=== PATIENT | female | born 1955 | race American Indian/Alaskan Native ===

== ENCOUNTER → 2016-09-16 | Outpatient (CLI) | payer OTHER ==
[2016-09-16 08:45] LABS: CHLORIDE,CL 104 mmol/L (98-110); SODIUM,NA 139 mmol/L (136-146)
== END ==
LOC: MW.CHFP 07:52
PROVIDERS: ATTEND Emergency Medicine
DX: I10 Essential (primary) hypertension (principal); E11.9 Type 2 diabetes mellitus without complications; Z79.4 Long term (current) use of insulin
CPT/HCPCS: 36415; 80053; 80061; 82044; 83036

== ENCOUNTER 2016-10-11 06:56 | Emergency (ER) | payer OTHER ==
[2016-10-11] MEDS ORDERED: Albuterol/Ipratropium 3.0-0.5 MG/3 ML Neb Soln NEB ONE (07:15)
--- NOTE | 2016-10-11 07:16 | EDM.PDOC ---
ED HPI GENERAL MEDICAL PROBLEM - General Chief Complaint: Skin Complaint Stated Complaint: CELLULITIS Time Seen by Provider: 10/11/16 07:16 Source of Information: Reports: Patient - History of Present Illness INITIAL COMMENTS - FREE TEXT/NARRATIVE: HISTORY AND PHYSICAL: History of present illness: [] Patient presents with cough for one week increasing in severity Urinary complaint of small-scale cellulitis on her abdomen secondary to insulin injection site approximately the size of a quarter red warm tender no exudate Fever nausea vomiting chills sweats no chest pain shortness breath headache dizziness or palpitation no bowel or urine symptoms Review of systems: As per history of present illness and below otherwise all systems reviewed and negative. Past medical history: As per history of present illness and as reviewed below otherwise noncontributory. Surgical history: As per history of present illness and as reviewed below otherwise noncontributory. Social history: No reported history of drug or alcohol abuse. Family history: As per history of present illness and as reviewed below otherwise noncontributory. Physical exam: HEENT: Atraumatic, normocephalic, pupils reactive, negative for conjunctival pallor or scleral icterus, mucous membranes moist, throat clear, neck supple, nontender, trachea midline. Lungs: Clear to auscultation, breath sounds equal bilaterally, chest nontender. Heart: S1S2, regular, negative for clicks, rubs, or JVD. Abdomen: Soft, nondistended, nontender. Negative for masses or hepatosplenomegaly. Negative for costovertebral tenderness. Pelvis: Stable nontender. Genitourinary: Deferred. Rectal: Deferred. Extremities: Atraumatic, negative for cords or calf pain. Neurovascular unremarkable. Neuro: Awake, alert, oriented. Cranial nerves II through XII unremarkable. Cerebellum unremarkable. Motor and sensory unremarkable throughout. Exam nonfocal. Diagnostics: [] Chest x-ray 2 views Therapeutics: [] DuoNeb Doxycycline HFA Impression: [] Acute bronchitis Small cellulitis right lower quadrant of abdomen proximally the size of a quarter surrounding the injection site Definitive disposition and diagnosis as appropriate pending reevaluation and review of above. - Related Data Allergies Allergy/AdvReac Type Severity Reaction Status Date / Time adhesive tape Allergy Itching Verified 10/11/16 07:08 amoxicillin trihydrate Allergy Diarrhea Verified 10/11/16 07:08 [From Augmentin] potassium clavulanate Allergy Rash Verified 10/11/16 07:08 [From Augmentin] sulfamethoxazole Allergy Nausea and Verified 10/11/16 07:08 [From Bactrim] Vomiting Tetanus Vaccines and Toxoid Allergy Swelling Verified 10/11/16 07:08 [Tetanus Vaccines & Toxoid] tramadol Allergy Rash Verified 10/11/16 07:08 trimethoprim [From Bactrim] Allergy Nausea and Verified 10/11/16 07:08 Vomiting Home Meds: Home Meds Lisinopril 20 mg PO DAILY 12/26/13 [History] Insulin Aspart [NovoLOG] 26 units SUBCUT QIDACANDBED 07/07/15 [History] Furosemide 0 mg PO BID 10/11/16 [History] Potassium Bicarbonate/Cit Ac [Potassium 25 Meq Tablet Eff] 0 DAILY 10/11/16 [ History] Past Medical History HEENT History: Reports: None Cardiovascular History: Reports: Hypertension Respiratory History: Reports: Sleep Apnea, Other (See Below) Other Respiratory History: Tested for sleep apnea, inconclusive results, "did not sleep well in the setting I was in". She mentioned to me that the results were positive but she refused the cpap. 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: Musculoskeletal History: Reports: Arthritis, Fracture, Osteoarthritis, Osteoporosis Other Musculoskeletal History: Treat arthritis symptoms with Alovera supplement , Hx: fracturing Pelvis '2012 Neurological History: Reports: None Psychiatric History: Reports: None Endocrine/Metabolic History: Reports: Diabetes, Type II, Obesity/BMI 30+ Hematologic History: Reports: None Immunologic History: Reports: None Oncologic (Cancer) History: Reports: None Dermatologic History: Reports: Cellulitis Other Dermatologic History: Cellulitus post surgery 07/2015, very sensitive to tapes/adhesives - Infectious Disease History Infectious Disease History: Reports: Chicken Pox, Measles - Past Surgical History HEENT Surgical History: Reports: Oral Surgery GI Surgical History: Reports: Appendectomy, Cholecystectomy, Colonoscopy, EGD, Hernia Repair/Other - History Comment History Comment: denies etoh Social & Family History - Family History Family Medical History: Noncontributory Cardiac: Reports: Afib Endocrine/Metabolic: Reports: Diabetes, type II Oncologic: Reports: Leukemia - Tobacco Use Smoking Status *Q: Never Smoker Second Hand Smoke Exposure: No - Caffeine Use Caffeine Use: Reports: Coffee, Soda - Alcohol Use Days Per Week of Alcohol Use: 0 Number of Drinks Per Day: 0 Total Drinks Per Week: 0 - Recreational Drug Use Recreational Drug Use: No Drug Use in Last 12 Months: No ED ROS GENERAL - Review of Systems Review Of Systems: ROS reveals no pertinent complaints other than HPI. ED EXAM, SKIN/RASH Exam: See Below Course - Vital Signs Last Recorded V/S: Last Vital Signs Temp 37.1 C 10/11/16 07:09 Pulse 91 10/11/16 07:09 Resp 18 10/11/16 07:09 BP 123/63 10/11/16 07:09 Pulse Ox 97 10/11/16 07:09 - Orders/Labs/Meds Orders: Active Orders 24 hr Category Date Time Status RT Aerosol Therapy [RC] ASDIRECTED Care 10/11/16 07:16 Active Chest 2V [CR] Stat Exams 10/11/16 07:16 Taken Meds: Medications Discontinued Medications Generic Name Dose Route Start Last Admin Trade Name Freq PRN Reason Stop Dose Admin Albuterol/Ipratropium 3 ml 10/11/16 07:15 10/11/16 07:29 Duoneb 3.0-0.5 Mg/3 Ml NEB 10/11/16 07:16 3 ml ONETIME ONE Administration Departure - Departure Time of Disposition: 08:09 Disposition: Home, Self-Care 01 Condition: good Clinical Impression: Acute bronchitis, Cellulitis - Discharge Information Forms: ED Department Discharge Additional Instructions: Medication as prescribed Return if symptoms persist or worsen Followup with primary care in 2 weeks Consider allergy medicine such as Claritin or Zyrtec daily [facility] [address] [place] [address] The following information is given to patients seen in the emergency department who are being discharged to home. This information is to outline your options for follow-up care. We provide all patients seen in our emergency department with a follow-up referral. The need for follow-up, as well as the timing and circumstances, are variable depending upon the specifics of your emergency department visit. If you don't have a primary care physician on staff, we will provide you with a referral. We always advise you to contact your personal physician following an emergency department visit to inform them of the circumstance of the visit and for follow-up with them and/or the need for any referrals to a consulting specialist. The emergency department will also refer you to a specialist when appropriate. This referral assures that you have the opportunity for follow-up care with a specialist. All of these measure are taken in an effort to provide you with optimal care, which includes your follow-up. Under all circumstances we always encourage you to contact your private physician who remains a resource for coordinating your care. When calling for follow-up care, please make the office aware that this follow-up is from your recent emergency room visit. If for any reason you are refused follow-up, please contact the [facility] emergency department at and asked to speak to the emergency department charge nurse. - My Orders Last 24 Hours: My Active Orders 10/11/16 07:16 RT Aerosol Therapy [RC] ASDIRECTED Chest 2V [CR] Stat - Assessment/Plan Last 24 Hours: My Active Orders 10/11/16 07:16 RT Aerosol Therapy [RC] ASDIRECTED Chest 2V [CR] Stat
[2016-10-11 08:20] VITALS: BP 149/90
--- NOTE | 2016-10-11 14:55 | CR ---
EXAM DATE: 10/11/16 PATIENT'S AGE: 60 Patient: TRENTON HALLMAN Facility: [place], [place] Site . Site : [id number] Study: XRay Chest [id number]/30/2017 8:00:39 AM Ordering Physician: Pop Blair Final Report: INDICATION: PAIN/SOB 2 VIEW CHEST FINDINGS: Heart size and vascular pattern appear normal. Lungs clear. Pleural angles are sharp. No visualized rib fractures or pneumothorax. CONCLUSION: Negative chest. Dictated by: Carlitos Gallo MD @ 10/11/2016 08:11:54 (Electronic Signature) Report Signed by Proxy. [facility] DIVISIONIftikhar
== END 2016-10-11 08:21 | disposition home or self-care (01) ==
LOC: MW.ED 06:56
DX: J20.9 Acute bronchitis, unspecified (principal); L03.311 Cellulitis of abdominal wall; E11.9 Type 2 diabetes mellitus without complications; E66.9 Obesity, unspecified; Z68.39 Body mass index [BMI] 39.0-39.9, adult; Z90.49 Acquired absence of other specified parts of digestive tract; Z98.890 Other specified postprocedural states; Z79.4 Long term (current) use of insulin; Z79.899 Other long term (current) drug therapy; Z88.1 Allergy status to other antibiotic agents; Z88.8 Allergy status to other drugs, medicaments and biological substances; Z91.048 Other nonmedicinal substance allergy status
CPT/HCPCS: 71020; 71020-26; 94664; 99283; 99283-25

== ENCOUNTER 2017-06-09 06:46 | Day surgery (SDC) | payer OTHER ==
--- NOTE | 2017-06-09 07:39 | PCM.PREANE ---
Preanesthetic Assessment - Anesthesia/Transfusion/Family Hx Anesthesia History: Prior Anesthesia Without Reaction Other Type of Anesthesia Reaction Comment: "tired & groggy" Family History of Anesthesia Reaction: No Transfusion History: No Prior Transfusion(s) Intubation History: History of Difficulty Intubation - Review of Systems General: No Symptoms Pulmonary: No Symptoms Cardiovascular: No Symptoms Gastrointestinal: No Symptoms Neurological: No Symptoms Other: Reports: None - Physical Assessment NPO Status Date: 06/08/17 NPO Status Time: 20:00 O2 Sat by Pulse Oximetry: 96 Respiratory Rate: 16 Vital Signs: Last Vital Signs Temp 36.4 C 06/09/17 07:10 Pulse 77 06/09/17 07:10 Resp 16 06/09/17 07:10 BP 150/73 H 06/09/17 07:10 Pulse Ox 96 06/09/17 07:10 Height: 1.7 m Weight: 118.388 kg ASA Class: 2 Airway Class: Mallampati = 3 Dentition: Reports: Normal Dentition ROM/Head Extension: Full Lungs: Clear to Auscultation, Normal Respiratory Effort Cardiovascular: Regular Rate, Regular Rhythm - Allergies Allergies/Adverse Reactions: Allergies Allergy/AdvReac Type Severity Reaction Status Date / Time adhesive tape Allergy Itching Verified 06/06/17 09:50 amoxicillin trihydrate Allergy Diarrhea Verified 06/06/17 09:50 [From Augmentin] clindamycin Allergy Nausea and Verified 06/06/17 09:55 Vomiting potassium clavulanate Allergy Rash Verified 06/06/17 09:50 [From Augmentin] sulfamethoxazole Allergy Nausea and Verified 06/06/17 09:50 [From Bactrim] Vomiting Tetanus Vaccines and Toxoid Allergy Swelling Verified 06/06/17 09:50 [Tetanus Vaccines & Toxoid] tramadol Allergy Rash Verified 06/06/17 09:50 trimethoprim [From Bactrim] Allergy Nausea and Verified 06/06/17 09:50 Vomiting - Anesthesia Plan Pre-Op Medication Ordered: None - Acknowledgements Anesthesia Type Planned: MAC Pt an Appropriate Candidate for the Planned Anesthesia: Yes Alternatives and Risks of Anesthesia Discussed w Pt/Guardian: Yes Pt/Guardian Understands and Agrees with Anesthesia Plan: Yes PreAnesthesia Questionnaire HEENT History: Reports: None Other HEENT History: wears glasses Cardiovascular History: Reports: Hypertension Other Cardiovascular History: 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 She mentioned to me that the results were positive but she refused the cpap. 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: Musculoskeletal History: Reports: Arthritis, Fracture, Osteoarthritis, Osteoporosis Other Musculoskeletal History: Treat arthritis symptoms with Alovera supplement , Hx: fracturing Pelvis '2012 Neurological History: Reports: None Psychiatric History: Reports: None Endocrine/Metabolic History: Reports: Diabetes, Type II, Obesity/BMI 30+ Hematologic History: Reports: None Immunologic History: Reports: None Oncologic (Cancer) History: Reports: None Dermatologic History: Reports: Cellulitis Other Dermatologic History: Cellulitus post surgery 07/2015, very sensitive to tapes/adhesives - Infectious Disease History Infectious Disease History: Reports: Chicken Pox, Measles - Past Surgical History Head Surgeries/Procedures: Reports: None HEENT Surgical History: Reports: Oral Surgery GI Surgical History: Reports: Appendectomy, Cholecystectomy, Colonoscopy, EGD, Hernia Repair/Other Other GI Surgeries/Procedures: Umbilical hernia repair, attempt to remove Gallbladder once, [place] for Laparoscopic removal of Gallbladder '2014, liver biopsy diagnosis Stage I liver disease, non-alcohol related Female Surgical History: Reports: Hysterectomy - History Comment History Comment: denies etoh - SUBSTANCE USE Smoking Status *Q: Never Smoker Tobacco Use Within Last Twelve Months: No Second Hand Smoke Exposure: No Days Per Week of Alcohol Use: 0 Number of Drinks Per Day: 0 Total Drinks Per Week: 0 Recreational Drug Use History: No - HOME MEDS Home Medications: Home Meds Lisinopril 20 mg PO DAILY 12/26/13 [History] Insulin Aspart [NovoLOG] 1 injection SUBCUT QIDACANDBED 07/07/15 [History] Albuterol [Ventolin HFA] 1 - 2 puff INH ASDIRECTED PRN 06/06/17 [History] Exenatide Microspheres [Bydureon] 1 injection SUBCUT WEEKLY 06/06/17 [History] - CURRENT (IN HOUSE) MEDS Current Meds: Current Medications Bupivacaine HCl/Epinephrine Bitart (Marcaine 0.25%/Epinephrine 1:200,000) 10 ml INJECT ONETIME ONE Stop: 06/09/17 08:01 Lactated Ringer's (Ringers, Lactated) 1,000 mls @ 500 mls/hr IV .BOLUS KERA Last Admin: 06/09/17 07:14 Dose: 500 mls/hr
[2017-06-09] MEDS ORDERED: Propofol 200 MG/20 ML SDV ONE (07:40)
[2017-06-09] MEDS ORDERED: Lidocaine 2% 5 ML SDV ONE ×2 (07:40→07:41)
[2017-06-09] MEDS ORDERED: Ketorolac 30 MG/ML SDV ONE ×2 (07:40→07:41)
[2017-06-09] MEDS ORDERED: Ondansetron 4 MG/2 ML SDV ONE ×2 (07:40→07:41)
[2017-06-09] MEDS ORDERED: fentaNYL 100 MCG/2 ML SDV ONE (07:40)
[2017-06-09] MEDS ORDERED: Midazolam 1 MG/ML 2 ML SDV ONE (07:41)
[2017-06-09] MEDS ORDERED: Lactated Ringers 1,000 ML IV SCH (08:00)
[2017-06-09] MEDS ORDERED: Bupivacaine 0.25%/EPINEPHrine 1:200,000 10 ML SDV INJECT ONE (08:00)
[2017-06-09] MEDS ORDERED: Atropine 1 MG/ML SDV ONE (09:04)
[2017-06-09 10:15] VITALS: BP 139/70
--- NOTE | 2017-06-09 10:39 | PCM48HPAN ---
Post Anesthesia Note - EVALUATION WITHIN 48HRS OF ANESTHETIC Vital Signs in Normal Range: Yes Patient Participated in Evaluation: Yes Respiratory Function Stable: Yes Airway Patent: Yes Cardiovascular Function Stable: Yes Hydration Status Stable: Yes Pain Control Satisfactory: Yes Nausea and Vomiting Control Satisfactory: Yes Mental Status Recovered: Yes
--- NOTE | 2017-06-09 10:39 | PCM.POSTAN ---
POST ANESTHESIA ASSESSMENT - MENTAL STATUS Mental Status: Alert, Oriented - RESPIRATORY Respiratory Status: Respiratory Rate WNL, Airway Patent, O2 Saturation Stable - CARDIOVASCULAR CV Status: Pulse Rate WNL, Blood Pressure Stable - GASTROINTESTINAL GI Status: No Symptoms - POST OP HYDRATION Hydration Status: Adequate & Stable
--- NOTE | 2017-06-09 13:17 | PCM.OPNOTE ---
- General Post-Op/Procedure Note Date of Surgery/Procedure: 06/09/17 Operative Procedure(s): left carpal tunnel release Pre Op Diagnosis: left carpal tunnel syndrome Post-Op Diagnosis: Same Anesthesia Technique: Local, MAC Primary Surgeon: Sakshi Franklin Rn Practitioner: Veronica Hills Complications: None Condition: Good Free Text/Narrative:: Intake & Output 06/08/17 06/09/17 06/09/17 23:59 07:59 15:59 Intake Total 750 Balance 750 [id number]
--- NOTE | 2017-06-09 20:43 | OR ---
SURGEON: NIRAV KRUGER MD DATE OF PROCEDURE: 06/09/2017 PREOPERATIVE DIAGNOSIS: Left carpal tunnel syndrome. POSTOPERATIVE DIAGNOSIS: Left carpal tunnel syndrome. PROCEDURE: Left carpal tunnel release. HARNESS PLACER: NATHAN Sosa. INDICATIONS: Ms. Short is seen today in evaluation for carpal tunnel. Risks and benefits of release were discussed with her and she was in agreement to proceed. Risks were including, but not limited to bleeding, infection, damage to underlying or overlying structures, possible need for future interventions, and possible scarring. DESCRIPTION OF PROCEDURE: After informed consent was obtained and placed on the chart, the patient was brought to the operating theater and laid in the supine position. After adequate local MAC anesthesia was obtained, the area was prepped and draped, and a time-out was completed to confirm side and site. The arm was then injected with local anesthesia and the arm was exsanguinated. The tourniquet was insufflated to 200 mmHg. Once adequately prepared, the 15 blade was used to dissect through the skin and subcutaneous tissues until release of the ligament. Once breached, the dissection was carried distally and proximally using a Littler scissor. Once adequately released, the area was copiously irrigated and complete release was ensured. The wound was then closed using 5-0 nylon stitch in a horizontal mattress fashion. The wound was dressed with Xeroform, fluffs, a Kerlix gauze dressing, and a 2-inch Alvaro wrap. The patient tolerated this well. All counts and needles were correct at the end of the case. FOLLOWUP INSTRUCTIONS: The patient will see us in 10 to 14 days sooner if any problems, questions, or concerns and was given a prescription for pain control. DENISSEGGTDENISSE / RYAN /[id number]
== END 2017-06-09 10:20 | disposition home or self-care (01) ==
LOC: MW.SDS 06:46
PROVIDERS: ATTEND Plastic Surgery
DX: G56.03 Carpal tunnel syndrome, bilateral upper limbs (principal); F40.240 Claustrophobia; K74.60 Unspecified cirrhosis of liver; I10 Essential (primary) hypertension; E78.00 Pure hypercholesterolemia, unspecified; M17.12 Unilateral primary osteoarthritis, left knee; S83.249A Other tear of medial meniscus, current injury, unspecified knee, initial encounter; F39 Unspecified mood [affective] disorder; K75.81 Nonalcoholic steatohepatitis (NASH); E11.42 Type 2 diabetes mellitus with diabetic polyneuropathy; E66.9 Obesity, unspecified; M81.0 Age-related osteoporosis without current pathological fracture; G47.30 Sleep apnea, unspecified; R16.1 Splenomegaly, not elsewhere classified; Z88.8 Allergy status to other drugs, medicaments and biological substances; Z91.048 Other nonmedicinal substance allergy status; Z79.4 Long term (current) use of insulin; Z88.1 Allergy status to other antibiotic agents; Z88.7 Allergy status to serum and vaccine; Z79.899 Other long term (current) drug therapy; Z98.890 Other specified postprocedural states; Z90.49 Acquired absence of other specified parts of digestive tract; Z68.41 Body mass index [BMI] 40.0-44.9, adult; Z87.442 Personal history of urinary calculi
CPT/HCPCS: 64721; J0461; J1885; J2250; J2405; J3010; J7120; 01810; J2704

== ENCOUNTER 2017-06-30 06:45 | Day surgery (SDC) | payer OTHER ==
[2017-06-30] MEDS ORDERED: Midazolam 1 MG/ML 2 ML SDV ONE (07:23)
[2017-06-30] MEDS ORDERED: fentaNYL 100 MCG/2 ML SDV ONE (07:23)
[2017-06-30] MEDS ORDERED: Propofol 200 MG/20 ML SDV ONE (07:23)
[2017-06-30] MEDS ORDERED: Bupivacaine 25%/EPINEPHrine/PF 30 ML ONE (07:23)
[2017-06-30] MEDS ORDERED: Lidocaine 2% 5 ML SDV ONE (07:23)
--- NOTE | 2017-06-30 07:25 | PCM.PREANE ---
Preanesthetic Assessment - Anesthesia/Transfusion/Family Hx Anesthesia History: Prior Anesthesia Without Reaction Other Type of Anesthesia Reaction Comment: "tired & groggy" Family History of Anesthesia Reaction: No Transfusion History: No Prior Transfusion(s) Intubation History: History of Difficulty Intubation - Review of Systems General: No Symptoms Pulmonary: No Symptoms Cardiovascular: No Symptoms Gastrointestinal: No Symptoms Neurological: No Symptoms Other: Reports: None - Physical Assessment NPO Status Date: 06/29/17 NPO Status Time: 23:00 O2 Sat by Pulse Oximetry: 97 Respiratory Rate: 16 Vital Signs: Last Vital Signs Temp 37.1 C 06/30/17 07:07 Pulse 83 06/30/17 07:07 Resp 16 06/30/17 07:07 BP 143/74 H 06/30/17 07:07 Pulse Ox 97 06/30/17 07:07 Height: 1.7 m Weight: 118.388 kg ASA Class: 3 Mental Status: Alert & Oriented x3 Airway Class: Mallampati = 2 Dentition: Reports: Normal Dentition Thyro-Mental Finger Breadths: 2 Mouth Opening Finger Breadths: 2 ROM/Head Extension: Full Lungs: Clear to Auscultation, Normal Respiratory Effort Cardiovascular: Regular Rate, Regular Rhythm - Allergies Allergies/Adverse Reactions: Allergies Allergy/AdvReac Type Severity Reaction Status Date / Time adhesive tape Allergy Itching Verified 06/27/17 09:25 amoxicillin trihydrate Allergy Diarrhea Verified 06/27/17 09:25 [From Augmentin] clindamycin Allergy Nausea and Verified 06/27/17 09:25 Vomiting potassium clavulanate Allergy Rash Verified 06/27/17 09:25 [From Augmentin] sulfamethoxazole Allergy Nausea and Verified 06/27/17 09:25 [From Bactrim] Vomiting Tetanus Vaccines and Toxoid Allergy Swelling Verified 06/27/17 09:25 [Tetanus Vaccines & Toxoid] tramadol Allergy Rash Verified 06/27/17 09:25 trimethoprim [From Bactrim] Allergy Nausea and Verified 06/27/17 09:25 Vomiting - Blood Blood Available: No - Anesthesia Plan Pre-Op Medication Ordered: None - Acknowledgements Anesthesia Type Planned: MAC Pt an Appropriate Candidate for the Planned Anesthesia: Yes Alternatives and Risks of Anesthesia Discussed w Pt/Guardian: Yes Pt/Guardian Understands and Agrees with Anesthesia Plan: Yes PreAnesthesia Questionnaire HEENT History: Reports: None Other HEENT History: wears glasses Cardiovascular History: Reports: Hypertension Other Cardiovascular History: 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 She mentioned to me that the results were positive but she refused the cpap. 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: Musculoskeletal History: Reports: Arthritis, Fracture, Osteoarthritis, Osteoporosis Other Musculoskeletal History: Treat arthritis symptoms with Alovera supplement , Hx: fracturing Pelvis '2012 Neurological History: Reports: None Psychiatric History: Reports: Mood Swings Endocrine/Metabolic History: Reports: Diabetes, Type II, Obesity/BMI 30+ (BMI 40.9) Hematologic History: Reports: None Immunologic History: Reports: None Oncologic (Cancer) History: Reports: None Dermatologic History: Reports: Cellulitis Other Dermatologic History: Cellulitus post surgery 07/2015, very sensitive to tapes/adhesives - Infectious Disease History Infectious Disease History: Reports: Chicken Pox, Measles - Past Surgical History Head Surgeries/Procedures: Reports: None HEENT Surgical History: Reports: Oral Surgery GI Surgical History: Reports: Appendectomy, Cholecystectomy, Colonoscopy, EGD, Hernia Repair/Other Other GI Surgeries/Procedures: Umbilical hernia repair, attempt to remove Gallbladder once, [facility] for Laparoscopic removal of Gallbladder '2014, liver biopsy diagnosis Stage I liver disease, non-alcohol related Female Surgical History: Reports: Hysterectomy Musculoskeletal Surgical History: Reports: Carpal Tunnel - History Comment History Comment: denies etoh - SUBSTANCE USE Smoking Status *Q: Never Smoker Tobacco Use Within Last Twelve Months: No Second Hand Smoke Exposure: No Days Per Week of Alcohol Use: 0 Number of Drinks Per Day: 0 Total Drinks Per Week: 0 Recreational Drug Use History: No - HOME MEDS Home Medications: Home Meds Lisinopril 20 mg PO DAILY 12/26/13 [History] Insulin Aspart [NovoLOG] 1 injection SUBCUT QIDACANDBED 07/07/15 [History] Albuterol [Ventolin HFA] 1 - 2 puff INH ASDIRECTED PRN 06/06/17 [History] Exenatide Microspheres [Bydureon] 1 injection SUBCUT WEEKLY 06/06/17 [History] Hydrocodone/Acetaminophen [[place] 5-325 Tablet] 1 each PO Q4H PRN #30 tablet [Rx] - CURRENT (IN HOUSE) MEDS Current Meds: Current Medications Bupivacaine HCl/Epinephrine Bitart (Marcaine 0.25%/Epinephrine 1:200,000) 10 ml INJECT ONETIME ONE Stop: 06/30/17 08:01 Lactated Ringer's (Ringers, Lactated) 1,000 mls @ 500 mls/hr IV .BOLUS KERA Last Admin: 06/30/17 07:09 Dose: 500 mls/hr
[2017-06-30] MEDS ORDERED: Lactated Ringers 1,000 ML IV SCH (08:00)
[2017-06-30] MEDS ORDERED: Bupivacaine 0.25%/EPINEPHrine 1:200,000 10 ML SDV INJECT ONE (08:00)
--- NOTE | 2017-06-30 09:03 | PCM48HPAN ---
Post Anesthesia Note - EVALUATION WITHIN 48HRS OF ANESTHETIC Vital Signs in Normal Range: Yes Patient Participated in Evaluation: Yes Respiratory Function Stable: Yes Airway Patent: Yes Cardiovascular Function Stable: Yes Hydration Status Stable: Yes Pain Control Satisfactory: Yes Nausea and Vomiting Control Satisfactory: Yes Mental Status Recovered: Yes Resp Rate: 16 - COMMENTS/OBSERVATIONS Free Text/Narrative:: No anesthesia problems. Patient skipped recovery room phase of postoperative care.
[2017-06-30 11:34] VITALS: BP 134/55
--- NOTE | 2017-06-30 15:08 | PCM.OPNOTE ---
- General Post-Op/Procedure Note Date of Surgery/Procedure: 06/30/17 Operative Procedure(s): right carpal tunnel release Pre Op Diagnosis: right carpal tunnel Post-Op Diagnosis: Same Anesthesia Technique: Local, MAC Primary Surgeon: Sakshi Franklin Padded Products Inspector Trimmer: Veronica Hills Complications: None Condition: Good
--- NOTE | 2017-07-05 10:39 | OR ---
SURGEON: NIRAV KRUGER MD DATE OF PROCEDURE: 06/30/2017 PREOPERATIVE DIAGNOSIS: Right carpal tunnel syndrome. POSTOPERATIVE DIAGNOSIS: Right carpal tunnel syndrome. PROCEDURE: Right carpal tunnel release. FACILITIES MAINTENANCE ASSISTANT: NATHAN Sosa ANESTHESIA: Local MAC. REASON FACILITIES MAINTENANCE ASSISTANT WAS NECESSARY: Retraction, closure, and prepping assistance. INDICATIONS: Ms. Short is a 61-year-old female with right carpal tunnel syndrome. Risks and benefits of release were discussed with her including, but not limited to bleeding, infection, damage to underlying or overlying structures, possible need for future interventions, and possible scarring. She was in agreement to proceed. PROCEDURE IN DETAIL: After informed consent was obtained and placed on the chart, the patient was brought to the operating theater and laid in supine position. After adequate local MAC anesthesia was obtained, the area was prepped and draped, a time-out was completed to confirm side and site. Once adequately prepped and draped, attention was then paid to the transverse carpal ligament that the arm was exsanguinated and then tourniquet insufflated to 200 mmHg. Once adequately confirmed, a 15 blade was used to dissect through the skin and subcutaneous tissues overlying the transverse carpal ligament. The ligament was breached. Dissection was carried distally and proximally under direct visualization. Once adequately released, the wound was copiously irrigated and closed with a 5.0 nylon in a horizontal mattress fashion. She tolerated this well and the would was dressed with xeroform, gauze and a 2 inch ashley wrap. The tourniquet was deflated and All counts and needles were correct at the end of the case. Follow Up: The patient will see us in 10-14 days, sooner with any issues or concerns. DENISSEGGTDENISSE / RYAN /[id number] TREVOR
== END 2017-06-30 09:30 | disposition home or self-care (01) ==
LOC: MW.SDS 06:45
PROVIDERS: ATTEND Plastic Surgery
DX: G56.01 Carpal tunnel syndrome, right upper limb (principal); E11.9 Type 2 diabetes mellitus without complications; I10 Essential (primary) hypertension; E78.00 Pure hypercholesterolemia, unspecified; E66.9 Obesity, unspecified; Z68.35 Body mass index [BMI] 35.0-35.9, adult; Z91.048 Other nonmedicinal substance allergy status; Z79.4 Long term (current) use of insulin; Z88.1 Allergy status to other antibiotic agents; Z79.899 Other long term (current) drug therapy; Z72.0 Tobacco use
CPT/HCPCS: 64721; 82962; J2250; J3010; J7120; 01810; J2704

== ENCOUNTER 2018-06-01 20:04 | Emergency (ER) | payer OTHER ==
--- NOTE | 2018-06-01 20:22 | EDM.PDOC ---
ED HPI GENERAL MEDICAL PROBLEM - General Chief Complaint: Back Pain or Injury Stated Complaint: POSSIBLE KIDNEY STONE Time Seen by Provider: 06/01/18 20:18 - History of Present Illness INITIAL COMMENTS - FREE TEXT/NARRATIVE: HISTORY AND PHYSICAL: History of present illness: Patient is 62-year-old white female presents with a concern of right flank pain this afternoon it was somewhat off-and-on and similar to a prior episode she had of urolithiasis this is subsequently resolved after she drank large amounts of fluid she denies fever chills nausea vomiting trauma or other concern she had no chest pain or shortness of breath. She remains pain-free at this time Review of systems: As per history of present illness and below otherwise all systems reviewed and negative. Past medical history: As per history of present illness and as reviewed below otherwise noncontributory. Surgical history: As per history of present illness and as reviewed below otherwise noncontributory. Social history: No reported history of drug or alcohol abuse. Family history: As per history of present illness and as reviewed below otherwise noncontributory. Physical exam: HEENT: Atraumatic, normocephalic, pupils reactive, negative for conjunctival pallor or scleral icterus, mucous membranes moist, throat clear, neck supple, nontender, trachea midline. Lungs: Clear to auscultation, breath sounds equal bilaterally, chest nontender. Heart: S1S2, regular, negative for clicks, rubs, or JVD. Abdomen: Soft, nondistended, nontender. Negative for masses or hepatosplenomegaly. Negative for costovertebral tenderness. Pelvis: Stable nontender. Genitourinary: Deferred. Rectal: Deferred. Extremities: Atraumatic, negative for cords or calf pain. Neurovascular unremarkable. Neuro: Awake, alert, oriented. Cranial nerves II through XII unremarkable. Cerebellum unremarkable. Motor and sensory unremarkable throughout. Exam nonfocal. Diagnostics: CBC CMP UA Therapeutics: None Impression: #1 right flank pain resolved #2 history of urolithiasis #3 medical screening exam Definitive disposition and diagnosis as appropriate pending reevaluation and review of above. - Related Data Allergies Allergy/AdvReac Type Severity Reaction Status Date / Time adhesive tape Allergy Itching Verified 06/01/18 20:18 amoxicillin trihydrate Allergy Diarrhea Verified 06/01/18 20:18 [From Augmentin] clindamycin Allergy Nausea and Verified 06/01/18 20:18 Vomiting potassium clavulanate Allergy Rash Verified 06/01/18 20:18 [From Augmentin] sulfamethoxazole Allergy Nausea and Verified 06/01/18 20:18 [From Bactrim] Vomiting Tetanus Vaccines and Toxoid Allergy Swelling Verified 06/01/18 20:18 [Tetanus Vaccines & Toxoid] tramadol Allergy Rash Verified 06/01/18 20:18 trimethoprim [From Bactrim] Allergy Nausea and Verified 06/01/18 20:18 Vomiting Home Meds: Home Meds Lisinopril 20 mg PO DAILY 12/26/13 [History] Insulin Aspart [NovoLOG] 1 injection SUBCUT QIDACANDBED 07/07/15 [History] Insulin Degludec [Tresiba] 1 injection SUBCUT DAILY 06/01/18 [History] Past Medical History HEENT History: Reports: None Other HEENT History: wears glasses Cardiovascular History: Reports: Hypertension Other Cardiovascular History: 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 She mentioned to me that the results were positive but she refused the cpap. 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: Musculoskeletal History: Reports: Arthritis, Fracture, Osteoarthritis, Osteoporosis Other Musculoskeletal History: Treat arthritis symptoms with Alovera supplement , Hx: fracturing Pelvis '2012 Neurological History: Reports: None Psychiatric History: Reports: Mood Swings Endocrine/Metabolic History: Reports: Diabetes, Type II, Obesity/BMI 30+ (BMI 40.9) Hematologic History: Reports: None Immunologic History: Reports: None Oncologic (Cancer) History: Reports: None Dermatologic History: Reports: Cellulitis Other Dermatologic History: Cellulitus post surgery 07/2015, very sensitive to tapes/adhesives - Infectious Disease History Infectious Disease History: Reports: Chicken Pox, Measles - Past Surgical History Head Surgeries/Procedures: Reports: None HEENT Surgical History: Reports: Oral Surgery GI Surgical History: Reports: Appendectomy, Cholecystectomy, Colonoscopy, EGD, Hernia Repair/Other Other GI Surgeries/Procedures: Umbilical hernia repair, attempt to remove Gallbladder once, [place] for Laparoscopic removal of Gallbladder '2014, liver biopsy diagnosis Stage I liver disease, non-alcohol related Female Surgical History: Reports: Hysterectomy Musculoskeletal Surgical History: Reports: Carpal Tunnel - History Comment History Comment: denies etoh Social & Family History - Family History Family Medical History: Noncontributory Cardiac: Reports: Afib Endocrine/Metabolic: Reports: Diabetes, type II Oncologic: Reports: Leukemia - Caffeine Use Caffeine Use: Reports: Coffee, Soda Caffeine Use Comment: 1 cup daily ED ROS GENERAL - Review of Systems Review Of Systems: ROS reveals no pertinent complaints other than HPI. ED EXAM, GENERAL - Physical Exam Exam: See Below (See dictation) Course - Vital Signs Last Recorded V/S: Last Vital Signs Temp 36.2 C 06/01/18 20:21 Pulse 89 06/01/18 20:21 Resp 18 06/01/18 20:21 BP 166/63 H 06/01/18 20:21 Pulse Ox 97 06/01/18 20:21 - Orders/Labs/Meds Orders: Active Orders 24 hr Category Date Time Status COMPREHENSIVE METABOLIC PN,CMP [CHEM] Stat Lab 06/01/18 20:29 Received Labs: Laboratory Tests 06/01/18 06/01/18 Range/Units 20:29 20:47 WBC 4.33 (4.0-11.0) K/uL RBC 4.29 L (4.30-5.90) M/uL Hgb 14.1 (12.0-16.0) g/dL Hct 41.0 (36.0-46.0) % MCV 95.6 (80.0-98.0) fL MCH 32.9 H (27.0-32.0) pg MCHC 34.4 (31.0-37.0) g/dL RDW Std Deviation 46.1 (28.0-62.0) fl RDW Coeff of Jennifer 13 (11.0-15.0) % Plt Count 85 L (150-400) K/uL MPV 11.10 (7.40-12.00) fL Neut % (Auto) 53.4 (48.0-80.0) % Lymph % (Auto) 33.0 (16.0-40.0) % [place] % (Auto) 7.9 (0.0-15.0) % Eos % (Auto) 5.5 (0.0-7.0) % Baso % (Auto) 0.2 (0.0-1.5) % Neut # (Auto) 2.3 (1.4-5.7) K/uL Lymph # (Auto) 1.4 (0.6-2.4) K/uL [place] # (Auto) 0.3 (0.0-0.8) K/uL Eos # (Auto) 0.2 (0.0-0.7) K/uL Baso # (Auto) 0.0 (0.0-0.1) K/uL Nucleated RBC % 0.0 /100WBC Nucleated RBCs # 0 K/uL Urine Color YELLOW Urine Appearance CLEAR Urine pH 6.0 (5.0-8.0) Ur Specific [place] 1.020 (1.001-1.035) Urine Protein NEGATIVE (NEGATIVE) mg/dL Urine Glucose (UA) NEGATIVE (NEGATIVE) mg/dL Urine Ketones NEGATIVE (NEGATIVE) mg/dL Urine Occult Blood NEGATIVE (NEGATIVE) Urine Nitrite NEGATIVE (NEGATIVE) Urine Bilirubin NEGATIVE (NEGATIVE) Urine Urobilinogen 0.2 (<2.0) EU/dL Ur Leukocyte Esterase NEGATIVE (NEGATIVE) Departure - Departure Time of Disposition: 21:03 Disposition: Home, Self-Care 01 Condition: Good Clinical Impression: History of flank pain, Encounter for medical screening examination - Discharge Information Referrals: PCP,None [Primary Care Provider] - Forms: ED Department Discharge Additional Instructions: The following information is given to patients seen in the emergency department who are being discharged to home. This information is to outline your options for follow-up care. We provide all patients seen in our emergency department with a follow-up referral. The need for follow-up, as well as the timing and circumstances, are variable depending upon the specifics of your emergency department visit. If you don't have a primary care physician on staff, we will provide you with a referral. We always advise you to contact your personal physician following an emergency department visit to inform them of the circumstance of the visit and for follow-up with them and/or the need for any referrals to a consulting specialist. The emergency department will also refer you to a specialist when appropriate. This referral assures that you have the opportunity for followup care with a specialist. All of these measure are taken in an effort to provide you with optimal care, which includes your followup. Under all circumstances we always encourage you to contact your private physician who remains a resource for coordinating your care. When calling for followup care, please make the office aware that this follow-up is from your recent emergency room visit. If for any reason you are refused follow-up, please contact the [facility] emergency department at and asked to speak to the emergency department charge nurse. Continue current medications keep scheduled appointment with private medical doctor return as needed as discussed - My Orders Last 24 Hours: My Active Orders 06/01/18 20:29 COMPREHENSIVE METABOLIC PN,CMP [CHEM] Stat - Assessment/Plan Last 24 Hours: My Active Orders 06/01/18 20:29 COMPREHENSIVE METABOLIC PN,CMP [CHEM] Stat
[2018-06-01 21:05] LABS: CHLORIDE,CL 104 mmol/L (98-107); SODIUM,NA 140 mmol/L (136-145)
[2018-06-01 21:20] VITALS: BP 155/69
== END 2018-06-01 21:20 | disposition home or self-care (01) ==
LOC: MW.ED 20:04
DX: Z13.9 Encounter for screening, unspecified (principal); I10 Essential (primary) hypertension; E11.9 Type 2 diabetes mellitus without complications; Z87.442 Personal history of urinary calculi; Z91.09 Other allergy status, other than to drugs and biological substances; Z88.1 Allergy status to other antibiotic agents; Z88.8 Allergy status to other drugs, medicaments and biological substances; Z79.899 Other long term (current) drug therapy; Z79.4 Long term (current) use of insulin
CPT/HCPCS: 36415; 80053; 81003; 85025; 99284

== ENCOUNTER 2019-12-28 11:42 | Emergency (ER) | payer OTHER ==
[2019-12-28] MEDS ORDERED: Sodium Chloride 0.9% 1,000 ML IV ONE (12:49)
[2019-12-28] MEDS ORDERED: Ondansetron 4 MG/2 ML SDV IVPUSH ONE (12:49)
[2019-12-28] MEDS ORDERED: Ketorolac 15 MG/ML SDV IVPUSH ONE (12:50)
--- NOTE | 2019-12-28 12:56 | EDM.PDOC ---
ED HPI GENERAL MEDICAL PROBLEM - General Chief Complaint: Genitourinary Problem Stated Complaint: BACK PAIN Time Seen by Provider: 12/28/19 11:47 Source of Information: Reports: Patient History Limitations: Reports: No Limitations - History of Present Illness INITIAL COMMENTS - FREE TEXT/NARRATIVE: 64F PMHx DM2, recurrent renal stones presents for R sided back pain, hyperglycem ia, body aches, nausea, and multiple episodes of vomiting this morning. Patient states it feels like prior episodes of renal stones. H/o recurrent renal stones requiring lithotripsy, ureteral stents. She denies dysuria/hematuria. She denies fevers. She notes her blood sugar has been high in the low 200s. She notes feeling dehydrated. Back Pain Score (Numeric/FACES): 3 - Related Data Allergies Allergy/AdvReac Type Severity Reaction Status Date / Time adhesive tape Allergy Itching Verified 06/01/18 20:18 amoxicillin trihydrate Allergy Diarrhea Verified 06/01/18 20:18 [From Augmentin] clindamycin Allergy Nausea and Verified 06/01/18 20:18 Vomiting potassium clavulanate Allergy Rash Verified 06/01/18 20:18 [From Augmentin] sulfamethoxazole Allergy Nausea and Verified 06/01/18 20:18 [From Bactrim] Vomiting Tetanus Vaccines and Toxoid Allergy Swelling Verified 06/01/18 20:18 [Tetanus Vaccines & Toxoid] tramadol Allergy Rash Verified 06/01/18 20:18 trimethoprim [From Bactrim] Allergy Nausea and Verified 06/01/18 20:18 Vomiting Home Meds: Home Meds Lisinopril 20 mg PO DAILY 12/26/13 [History] Insulin Aspart [NovoLOG] 1 injection SUBCUT QIDACANDBED 07/07/15 [History] Insulin Degludec [Tresiba] 1 injection SUBCUT DAILY 06/01/18 [History] Past Medical History HEENT History: Reports: None Other HEENT History: wears glasses Cardiovascular History: Reports: Hypertension Other Cardiovascular History: 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 She mentioned to me that the results were positive but she refused the cpap. 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: Musculoskeletal History: Reports: Arthritis, Fracture, Osteoarthritis, Osteoporosis Other Musculoskeletal History: Treat arthritis symptoms with Alovera supplement, Hx: fracturing Pelvis '2012 Neurological History: Reports: None Psychiatric History: Reports: Mood Swings Endocrine/Metabolic History: Reports: Diabetes, Type II, Obesity/BMI 30+ Hematologic History: Reports: None Immunologic History: Reports: None Oncologic (Cancer) History: Reports: None Dermatologic History: Reports: Cellulitis Other Dermatologic History: Cellulitus post surgery 07/2015, very sensitive to tapes/adhesives - Infectious Disease History Infectious Disease History: Reports: Chicken Pox, Measles - Past Surgical History Head Surgeries/Procedures: Reports: None HEENT Surgical History: Reports: Oral Surgery GI Surgical History: Reports: Appendectomy, Cholecystectomy, Colonoscopy, EGD, Hernia Repair/Other Other GI Surgeries/Procedures: Umbilical hernia repair, attempt to remove Gallbladder once, [place] for Laparoscopic removal of Gallbladder '2014, liver biopsy diagnosis Stage I liver disease, non-alcohol related Female Surgical History: Reports: Hysterectomy Musculoskeletal Surgical History: Reports: Carpal Tunnel - History Comment History Comment: denies etoh Social & Family History - Family History Family Medical History: Noncontributory Cardiac: Reports: Afib Endocrine/Metabolic: Reports: Diabetes, type II Oncologic: Reports: Leukemia - Tobacco Use Smoking Status *Q: Never Smoker - Caffeine Use Caffeine Use: Reports: None Caffeine Use Comment: 1 cup daily - Recreational Drug Use Recreational Drug Use: No ED ROS GENERAL - Review of Systems Review Of Systems: Comprehensive ROS is negative, except as noted in HPI. ED EXAM, RENAL/ - Physical Exam Exam: See Below Exam Limited By: No Limitations General Appearance: Alert, WD/WN, No Apparent Distress Head: Atraumatic, Normocephalic Respiratory/Chest: No Respiratory Distress, Lungs Clear, Normal Breath Sounds, No Accessory Muscle Use Cardiovascular: Normal Peripheral Pulses, Regular Rate, Rhythm GI/Abdominal: Soft, Non-Tender, No Distention Back Exam: No: CVA Tenderness (L), CVA Tenderness (R) Extremities: Normal Inspection Neurological: Alert Psychiatric: Normal Affect, Normal Mood Skin Exam: Warm, Dry Course - Vital Signs Last Recorded V/S: Last Vital Signs Temp 98.8 F 12/28/19 12:31 Pulse 75 12/28/19 12:31 Resp 18 12/28/19 12:31 BP 156/58 H 12/28/19 12:31 Pulse Ox 98 12/28/19 12:31 - Orders/Labs/Meds Orders: Active Orders 24 hr Category Date Time Status Blood Glucose Check, Bedside [RC] ONETIME Care 12/28/19 12:50 Active COMPREHENSIVE METABOLIC PN,CMP [CHEM] Stat Lab 12/28/19 Ordered CULTURE URINE [RM] Stat Lab 12/28/19 12:41 Received Labs: Laboratory Tests 12/28/19 12/28/19 12/28/19 Range/Units 12:30 12:41 13:30 WBC 9.36 (4.0-11.0) K/uL RBC 4.08 L (4.30-5.90) M/uL Hgb 13.7 (12.0-16.0) g/dL Hct 40.6 (36.0-46.0) % MCV 99.5 H (80.0-98.0) fL MCH 33.6 H (27.0-32.0) pg MCHC 33.7 (31.0-37.0) g/dL RDW Std Deviation 50.8 (28.0-62.0) fl RDW Coeff of Jennifer 14 (11.0-15.0) % Plt Count 75 L (150-400) K/uL MPV 12.50 H (7.40-12.00) fL Neut % (Auto) 79.3 (48.0-80.0) % Lymph % (Auto) 10.6 L (16.0-40.0) % [place] % (Auto) 9.6 (0.0-15.0) % Eos % (Auto) 0.3 (0.0-7.0) % Baso % (Auto) 0.2 (0.0-1.5) % Neut # (Auto) 7.4 H (1.4-5.7) K/uL Lymph # (Auto) 1.0 (0.6-2.4) K/uL [place] # (Auto) 0.9 H (0.0-0.8) K/uL Eos # (Auto) 0.0 (0.0-0.7) K/uL Baso # (Auto) 0.0 (0.0-0.1) K/uL Nucleated RBC % 0.0 /100WBC Nucleated RBCs # 0 K/uL VBG pH (7.31-7.41) VBG pCO2 (35-45) mmHG VBG pO2 (30-40) mmHG VBG HCO3 (22-30) mEq/L VBG Total CO2 (41-51) mmol/L VBG Base Excess (-3.0-3.0) POC Glucose 140 H (60-110) mg/dL Urine Color DARK YELLOW Urine Appearance CLEAR Urine pH 5.5 (5.0-8.0) Ur Specific [place] 1.025 (1.001-1.035) Urine Protein TRACE H (NEGATIVE) mg/dL Urine Glucose (UA) NEGATIVE (NEGATIVE) mg/dL Urine Ketones NEGATIVE (NEGATIVE) mg/dL Urine Occult Blood TRACE-INTACT H (NEGATIVE) Urine Nitrite POSITIVE H (NEGATIVE) Urine Bilirubin SMALL H (NEGATIVE) Urine Ictotest NEGATIVE Urine Urobilinogen 0.2 (<2.0) EU/dL Ur Leukocyte Esterase NEGATIVE (NEGATIVE) Urine RBC 0-1 (0-2/HPF) Urine WBC 1-2 (0-5/HPF) Ur Epithelial Cells OCCASIONAL (NONE-FEW) Urine Bacteria 1+ H (NEGATIVE) 12/28/19 Range/Units 13:30 WBC (4.0-11.0) K/uL RBC (4.30-5.90) M/uL Hgb (12.0-16.0) g/dL Hct (36.0-46.0) % MCV (80.0-98.0) fL MCH (27.0-32.0) pg MCHC (31.0-37.0) g/dL RDW Std Deviation (28.0-62.0) fl RDW Coeff of Jennifer (11.0-15.0) % Plt Count (150-400) K/uL MPV (7.40-12.00) fL Neut % (Auto) (48.0-80.0) % Lymph % (Auto) (16.0-40.0) % [place] % (Auto) (0.0-15.0) % Eos % (Auto) (0.0-7.0) % Baso % (Auto) (0.0-1.5) % Neut # (Auto) (1.4-5.7) K/uL Lymph # (Auto) (0.6-2.4) K/uL [place] # (Auto) (0.0-0.8) K/uL Eos # (Auto) (0.0-0.7) K/uL Baso # (Auto) (0.0-0.1) K/uL Nucleated RBC % /100WBC Nucleated RBCs # K/uL VBG pH 7.41 (7.31-7.41) VBG pCO2 46 H (35-45) mmHG VBG pO2 52 H (30-40) mmHG VBG HCO3 29 (22-30) mEq/L VBG Total CO2 27 L (41-51) mmol/L VBG Base Excess 3.4 H (-3.0-3.0) POC Glucose (60-110) mg/dL Urine Color Urine Appearance Urine pH (5.0-8.0) Ur Specific [place] (1.001-1.035) Urine Protein (NEGATIVE) mg/dL Urine Glucose (UA) (NEGATIVE) mg/dL Urine Ketones (NEGATIVE) mg/dL Urine Occult Blood (NEGATIVE) Urine Nitrite (NEGATIVE) Urine Bilirubin (NEGATIVE) Urine Ictotest Urine Urobilinogen (<2.0) EU/dL Ur Leukocyte Esterase (NEGATIVE) Urine RBC (0-2/HPF) Urine WBC (0-5/HPF) Ur Epithelial Cells (NONE-FEW) Urine Bacteria (NEGATIVE) Meds: Medications Discontinued Medications Generic Name Dose Route Start Last Admin Trade Name Freq PRN Reason Stop Dose Admin Sodium Chloride 1,000 mls @ 999 mls/hr 12/28/19 12:49 12/28/19 13:13 Normal Saline IV 12/28/19 13:49 999 mls/hr .Bolus ONE Administration Ceftriaxone Sodium/Dextrose 1 50 mls @ 100 mls/hr 12/28/19 13:33 12/28/19 14:16 gm/ Premix IV 12/28/19 14:02 100 mls/hr ONETIME ONE Administration Ketorolac Tromethamine 15 mg 12/28/19 12:50 12/28/19 13:13 Toradol IVPUSH 12/28/19 12:51 15 mg ONETIME ONE Administration Ondansetron HCl 4 mg 12/28/19 12:49 12/28/19 13:13 Zofran IVPUSH 12/28/19 12:50 4 mg ONETIME ONE Administration - Re-Assessments/Exams Free Text/Narrative Re-Assessment/Exam: 12/28/19 12:55 Will get labs, CT A/P stone study, will give IVFB, toradol for pain. 12/28/19 15:01 CT is unremarkable, no evidence of renal stones or acute intraabdominal pathology. There is evidence of a urinary tract infection without CT evidence of pyelonephritis. However given symptoms will tx for pyelo with 1x dose rocephin and outpatient PO abx with pyleo return precautions. Patient agrees with and understands plan. Departure - Departure Time of Disposition: 15:10 Disposition: Home, Self-Care 01 Condition: Good Clinical Impression: UTI (urinary tract infection) Qualifiers: Urinary tract infection type: acute pyelonephritis Qualified Code(s): N10 - Acute pyelonephritis - Discharge Information Instructions: Pyelonephritis, Adult, [id number] Referrals: Maciel Aden MD [Primary Care Provider] - Forms: ED Department Discharge Additional Instructions: The following information is given to patients seen in the emergency department who are being discharged to home. This information is to outline your options for follow-up care. We provide all patients seen in our emergency department with a follow-up referral. The need for follow-up, as well as the timing and circumstances, are variable depending upon the specifics of your emergency department visit. If you don't have a primary care physician on staff, we will provide you with a referral. We always advise you to contact your personal physician following an emergency department visit to inform them of the circumstance of the visit and for follow-up with them and/or the need for any referrals to a consulting specialist. The emergency department will also refer you to a specialist when appropriate. This referral assures that you have the opportunity for follow-up care with a specialist. All of these measure are taken in an effort to provide you with optimal care, which includes your follow-up. Under all circumstances we always encourage you to contact your private physician who remains a resource for coordinating your care. When calling for follow-up care, please make the office aware that this follow-up is from your recent emergency room visit. If for any reason you are refused follow-up, please contact the [facility] Emergency Department at and asked to speak to the emergency department charge nurse. Sepsis Event Note (ED) - Evaluation Sepsis Screening Result: No Definite Risk - Focused Exam Vital Signs: Vital Signs Temp Pulse Resp BP Pulse Ox 12/28/19 12:31 98.8 F 75 18 156/58 H 98 - My Orders Last 24 Hours: My Active Orders 12/28/19 COMPREHENSIVE METABOLIC PN,CMP [CHEM] Stat 12/28/19 12:41 CULTURE URINE [RM] Stat 12/28/19 12:50 Blood Glucose Check, Bedside [RC] ONETIME - Assessment/Plan Last 24 Hours: My Active Orders 12/28/19 COMPREHENSIVE METABOLIC PN,CMP [CHEM] Stat 12/28/19 12:41 CULTURE URINE [RM] Stat 12/28/19 12:50 Blood Glucose Check, Bedside [RC] ONETIME
[2019-12-28] MEDS ORDERED: cefTRIAXone 1 GM in Premix Bag 1 BAG IV ONE (13:33)
--- NOTE | 2019-12-28 14:36 | CT ---
HISTORY: Right-sided abdominal pain. TECHNIQUE: Noncontrast CT abdomen and pelvis. COMPARISON: 02/23/2016. FINDINGS: The liver has a nodular contour likely indicating changes of cirrhosis. Prior cholecystectomy. Increased splenomegaly with the spleen measuring 17 cm in transverse dimension compared to 15 cm transverse dimension previously. Adrenal glands are normal. No focal pancreatic abnormality. No hydronephrosis. No ureteral calculus. Urinary bladder is nondistended. Pelvic calcifications likely represent phleboliths. Patient is status post hysterectomy. - No small bowel obstruction. No diverticulitis. There is a fat and fluid containing umbilical region hernia which is similar to the prior CT. No abdominal aortic aneurysm. There increased number of retroperitoneal lymph nodes, several of which have enlarged from the prior CT compatible with mild adenopathy. There are also prominent nati hepatis/portacaval lymph nodes as before. - Trace left-sided pleural effusion. No consolidation within the lung bases. - Degenerative changes of the spine. Mild superior endplate compression fracture of L2 is unchanged. Remote healed fracture of the right inferior pubic ramus. IMPRESSION: 1. No specific identified cause of acute right-sided abdominal pain. 2. Cirrhotic liver. 3. Increased splenomegaly. 4. Small fat and fluid containing umbilical region hernia as before. 5. New trace left pleural effusion. 6. Mild retroperitoneal adenopathy with enlargement of a few small left periaortic lymph nodes. Portacaval/nati hepatis mild lymphadenopathy is unchanged. Dictated by Morales Johnson MD @ 12/28/2019 2:35:15 PM Please note that all CT scans at this facility use dose modulation, iterative reconstruction, and/or weight-based dosing when appropriate to reduce radiation dose to as low as reasonably achievable. Dictated by: Morales Johnson MD @ 12/28/2019 14:35:22 (Electronically Signed)
[2019-12-28 15:28] LABS: CARBON DIOXIDE,CO2 27.8 mmol/L (21.0-32.0); POTASSIUM,K 3.4 mmol/L (3.5-5.1)
[2019-12-28 15:35] VITALS: BP 129/64; PULSE 68
== END 2019-12-28 15:37 | disposition home or self-care (01) ==
LOC: MW.ED 11:42
DX: N10 Acute pyelonephritis (principal); I10 Essential (primary) hypertension; E11.9 Type 2 diabetes mellitus without complications; E66.9 Obesity, unspecified; Z68.41 Body mass index [BMI] 40.0-44.9, adult; Z91.048 Other nonmedicinal substance allergy status; Z88.1 Allergy status to other antibiotic agents; Z88.8 Allergy status to other drugs, medicaments and biological substances; Z79.4 Long term (current) use of insulin; Z79.899 Other long term (current) drug therapy; Z88.5 Allergy status to narcotic agent
CPT/HCPCS: 36415; 74176; 80053; 81001; 82803; 82962; 85025; 87086; 96361; 96365; 96375; 99285; J0696; J1885; J2405; J7030; 99283

== ENCOUNTER 2020-07-16 15:17 | Emergency (ER) | payer OTHER ==
[2020-07-16] MEDS ORDERED: Sodium Chloride 0.9% 1,000 ML IV ONE (16:38)
[2020-07-16] MEDS ORDERED: Ondansetron 4 MG/2 ML SDV IVPUSH ONE (17:06)
[2020-07-16 17:07] LABS: BLOOD UREA NITROGEN,BUN 17 mg/dL (7.0-18.0); CARBON DIOXIDE,CO2 30.1 mmol/L (21.0-32.0); CHLORIDE,CL 105 mmol/L (98-107); GLUCOSE RANDOM 116 mg/dL (74-106); POTASSIUM,K 3.8 mmol/L (3.5-5.1); SODIUM,NA 140 mmol/L (136-145)
--- NOTE | 2020-07-16 17:19 | EDM.PDOC ---
ED HPI GENERAL MEDICAL PROBLEM - General Chief Complaint: Abdominal Pain Stated Complaint: REFERED BY BERNARD TONG Time Seen by Provider: 07/16/20 16:14 Source of Information: Reports: Patient History Limitations: Reports: No Limitations - History of Present Illness INITIAL COMMENTS - FREE TEXT/NARRATIVE: HISTORY AND PHYSICAL: History of present illness: Patient is a 64-year-old female presenting to the ED with left flank pain x12 hours. Patient states she woke up this morning with malaise, painful urination, and nausea, vomiting. Patient states that she vomited twice and denies any bloody or bilious vomitus. Patient states that she believed she had a UTI so she went to the [facility] clinic in [place]. They performed a urinalysis and her to the ED. Patient states that she does have a history of kidney stones; last episode in December 2019 for which she received lithotripsy from Dr. Henson, urology. Patient also endorses a history of stage I liver disease, DM 2, hypertension. Patient denies chest pain or cough. Denies headache, neck stiff ness, change in vision, syncope, or near syncope. Denies diarrhea or constipation. Has not noted any blood in urine or stool. Patient has been eating and drinking appropriately prior to symptom onset. Review of systems: As per history of present illness and below otherwise all systems reviewed and negative. Past medical history: As per history of present illness and as reviewed below otherwise noncontributory. Surgical history: As per history of present illness and as reviewed below otherwise noncontri butory. Social history: See social history for further information Family history: As per history of present illness and as reviewed below otherwise noncontributory. Physical exam: General: Patient is alert, oriented, and in no acute distress. Patient sitting comfortably on exam table. Vitals stable and reviewed by me. HEENT: Atraumatic, normocephalic, pupils equal and reactive bilaterally, negative for conjunctival pallor or scleral icterus, mucous membranes moist, TMs normal bilaterally, throat clear, neck supple, nontender, trachea midline. No drooling or trismus noted. No meningeal signs. No hot potato voice noted. Lungs: Clear to auscultation, breath sounds equal bilaterally, chest nontender. Heart: S1S2, regular rate and rhythm without overt murmur Abdomen: Soft, nondistended, nontender. Negative for masses or hepatosplenomegaly. Positive CVA tenderness of the left. Pelvis: Stable nontender. Genitourinary: Deferred. Rectal: Deferred. Skin: Intact, warm, dry. No lesions or rashes noted. Extremities: Lymphedema noted on bilateral legs. Atraumatic, negative for cords or calf pain. Neurovascular unremarkable. Neuro: Awake, alert, oriented. Cranial nerves II through XII unremarkable. Cerebellum unremarkable. Motor and sensory unremarkable throughout. Exam nonfocal. Notes: Urinalysis was performed clinic but does show too numerous to count white blood cells, 3 white blood cells, positive leukocyte esterase, and 1+ bacteria. Urine sent for culture at the clinic. I did call and speak to Dr. Flaherty, urology, and thoroughly discussed patients case. He has come in to personally see and evaluate patient. Per his recommendations and patients allergy considerations, will give patient tobramycin 240mg IV and discharge with Keflex 500mg PO QID x 14 days. She is to follow up with him in the clinic on Monday. She does have thrombocytopenia today in the emergency room, but this appears stable from her baseline on past lab evaluation. All incidental findings of imaging today discussed with patient and the to have this followed up with her primary care provider. Strict return precautions thoroughly discussed with patient. Discussed importance for follow-up with her primary care provider and Dr. Alcala. Voices understanding and is agreeable to plan of care. Denies any further questions or concerns at this time. Diagnostics: CBC, CMP, lipase, UA, lactate, blood cultures, beta hCG, abdomen/pelvis CT without contrast Therapeutics: NS, Zofran, Oxycodone, Tobramycin Prescription: Keflex Impression: Acute pyelonephritis Thrombocytopenia, stable Plan: 1. Take medication as prescribed. You can use ibuprofen as directed for pain and discomfort. 2. Follow-up with Dr. Alcala on Monday as discussed. Also follow up with your primary care for all other incidental findings as discussed. Return to the ED as needed and as discussed. Definitive disposition and diagnosis as appropriate pending reevaluation and review of above. - Related Data Allergies Allergy/AdvReac Type Severity Reaction Status Date / Time adhesive tape Allergy Itching Verified 06/01/18 20:18 amoxicillin trihydrate Allergy Diarrhea Verified 06/01/18 20:18 [From Augmentin] ciprofloxacin [From Cipro] Allergy Other Verified 07/16/20 16:20 clindamycin Allergy Nausea and Verified 06/01/18 20:18 Vomiting potassium clavulanate Allergy Rash Verified 06/01/18 20:18 [From Augmentin] sulfamethoxazole Allergy Nausea and Verified 06/01/18 20:18 [From Bactrim] Vomiting Tetanus Vaccines and Toxoid Allergy Swelling Verified 06/01/18 20:18 [Tetanus Vaccines & Toxoid] tramadol Allergy Rash Verified 06/01/18 20:18 trimethoprim [From Bactrim] Allergy Nausea and Verified 06/01/18 20:18 Vomiting Home Meds: Home Meds Lisinopril 20 mg PO DAILY 12/26/13 [History] Insulin Degludec [Tresiba] 0 - 50 units SUBCUT DAILY 06/01/18 [History] Exenatide Microspheres [Bydureon Pen] 2 mg SQ WEEKLY 07/16/20 [History] Furosemide [Lasix] 20 mg PO DAILY PRN 07/16/20 [History] Insulin Aspart (Niacinamide) [Fiasp 100 Unit/ml Flextouch] 32 - 38 unit SQ TIDAC 07/16/20 [History] cephALEXin [Keflex] 500 mg PO QID 14 Days #56 cap 07/16/20 [Rx] Past Medical History HEENT History: Reports: None Other HEENT History: wears glasses Cardiovascular History: Reports: Hypertension Other Cardiovascular History: 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 She mentioned to me that the results were positive but she refused the cpap. 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: Musculoskeletal History: Reports: Arthritis, Fracture, Osteoarthritis, Osteoporosis Other Musculoskeletal History: Treat arthritis symptoms with Alovera supplement, Hx: fracturing Pelvis Neurological History: Reports: None Psychiatric History: Reports: Mood Swings Endocrine/Metabolic History: Reports: Diabetes, Type II, Obesity/BMI 30+ Hematologic History: Reports: None Immunologic History: Reports: None Oncologic (Cancer) History: Reports: None Dermatologic History: Reports: Cellulitis Other Dermatologic History: Cellulitus post surgery 07/2015, very sensitive to tapes/adhesives - Infectious Disease History Infectious Disease History: Reports: Chicken Pox, Measles - Past Surgical History Head Surgeries/Procedures: Reports: None HEENT Surgical History: Reports: Oral Surgery GI Surgical History: Reports: Appendectomy, Cholecystectomy, Colonoscopy, EGD, Hernia Repair/Other Other GI Surgeries/Procedures: Umbilical hernia repair, attempt to remove Gallbladder once, [facility] for Laparoscopic removal of Gallbladder '2014, liver biopsy diagnosis Stage I liver disease, non-alcohol related Female Surgical History: Reports: Hysterectomy Musculoskeletal Surgical History: Reports: Carpal Tunnel - History Comment History Comment: denies etoh Social & Family History - Family History Family Medical History: No Pertinent Family History Cardiac: Reports: Afib Endocrine/Metabolic: Reports: Diabetes, type II Oncologic: Reports: Leukemia - Caffeine Use Caffeine Use: Reports: None Caffeine Use Comment: 1 cup daily ED ROS GENERAL - Review of Systems Review Of Systems: Comprehensive ROS is negative, except as noted in HPI. ED EXAM, GENERAL - Physical Exam Exam: See Below (see dictation) Course - Vital Signs Last Recorded V/S: Last Vital Signs Temp 97 F 07/16/20 20:37 Pulse 86 07/16/20 20:37 Resp 18 07/16/20 20:37 BP 138/48 L 07/16/20 20:37 Pulse Ox 98 07/16/20 20:37 - Orders/Labs/Meds Orders: Active Orders 24 hr Category Date Time Status CULTURE BLOOD [BC] Stat Lab 07/16/20 16:35 Received CULTURE BLOOD [BC] Stat Lab 07/16/20 16:47 Received Blood Culture x2 Reflex Set [OM.PC] Stat Oth 07/16/20 15:46 Ordered Labs: Laboratory Tests 07/16/20 07/16/20 07/16/20 Range/Units 14:33 16:35 16:35 WBC 4.65 (4.0-11.0) K/uL RBC 3.81 L (4.30-5.90) M/uL Hgb 13.1 (12.0-16.0) g/dL Hct 38.4 (36.0-46.0) % MCV 100.8 H (80.0-98.0) fL MCH 34.4 H (27.0-32.0) pg MCHC 34.1 (31.0-37.0) g/dL RDW Std Deviation 50.6 (28.0-62.0) fl RDW Coeff of Jennifer 14 (11.0-15.0) % Plt Count 69 L (150-400) K/uL MPV 11.50 (7.40-12.00) fL Neut % (Auto) 67.5 (48.0-80.0) % Lymph % (Auto) 19.4 (16.0-40.0) % Calloway % (Auto) 11.2 (0.0-15.0) % Eos % (Auto) 1.7 (0.0-7.0) % Baso % (Auto) 0.2 (0.0-1.5) % Neut # (Auto) 3.1 (1.4-5.7) K/uL Lymph # (Auto) 0.9 (0.6-2.4) K/uL Calloway # (Auto) 0.5 (0.0-0.8) K/uL Eos # (Auto) 0.1 (0.0-0.7) K/uL Baso # (Auto) 0.0 (0.0-0.1) K/uL Nucleated RBC % 0.0 /100WBC Nucleated RBCs # 0 K/uL Lactate 1.1 (0.20-2.00) mmol/L Sodium (136-145) mmol/L Potassium (3.5-5.1) mmol/L Chloride (98-107) mmol/L Carbon Dioxide (21.0-32.0) mmol/L BUN (7.0-18.0) mg/dL Creatinine (0.6-1.0) mg/dL Est Cr Clr Drug Dosing mL/min Estimated GFR (MDRD) ml/min Glucose (74-106) mg/dL Calcium (8.5-10.1) mg/dL Total Bilirubin (0.2-1.0) mg/dL AST (15-37) IU/L ALT (14-63) IU/L Alkaline Phosphatase (46-116) U/L Total Protein (6.4-8.2) g/dL Albumin (3.4-5.0) g/dL Globulin (2.6-4.0) g/dL Albumin/Globulin Ratio (0.9-1.6) Lipase (73-393) U/L Urine HCG, Qual NEGATIVE (NEGATIVE) 07/16/20 07/16/20 07/16/20 Range/Units 16:35 16:35 17:37 WBC (4.0-11.0) K/uL RBC (4.30-5.90) M/uL Hgb (12.0-16.0) g/dL Hct (36.0-46.0) % MCV (80.0-98.0) fL MCH (27.0-32.0) pg MCHC (31.0-37.0) g/dL RDW Std Deviation (28.0-62.0) fl RDW Coeff of Jennifer (11.0-15.0) % Plt Count (150-400) K/uL MPV (7.40-12.00) fL Neut % (Auto) (48.0-80.0) % Lymph % (Auto) (16.0-40.0) % Calloway % (Auto) (0.0-15.0) % Eos % (Auto) (0.0-7.0) % Baso % (Auto) (0.0-1.5) % Neut # (Auto) (1.4-5.7) K/uL Lymph # (Auto) (0.6-2.4) K/uL Calloway # (Auto) (0.0-0.8) K/uL Eos # (Auto) (0.0-0.7) K/uL Baso # (Auto) (0.0-0.1) K/uL Nucleated RBC % /100WBC Nucleated RBCs # K/uL Lactate 0.9 (0.20-2.00) mmol/L Sodium 140 (136-145) mmol/L Potassium 3.8 (3.5-5.1) mmol/L Chloride 105 (98-107) mmol/L Carbon Dioxide 30.1 (21.0-32.0) mmol/L BUN 17 (7.0-18.0) mg/dL Creatinine 0.8 (0.6-1.0) mg/dL Est Cr Clr Drug Dosing 69.99 mL/min Estimated GFR (MDRD) > 60.0 ml/min Glucose 116 H (74-106) mg/dL Calcium 9.0 (8.5-10.1) mg/dL Total Bilirubin 2.5 H (0.2-1.0) mg/dL AST 40 H (15-37) IU/L ALT 36 (14-63) IU/L Alkaline Phosphatase 87 (46-116) U/L Total Protein 7.1 (6.4-8.2) g/dL Albumin 2.8 L (3.4-5.0) g/dL Globulin 4.3 H (2.6-4.0) g/dL Albumin/Globulin Ratio 0.7 L (0.9-1.6) Lipase 80 (73-393) U/L Urine HCG, Qual (NEGATIVE) Meds: Medications Discontinued Medications Generic Name Dose Route Start Last Admin Trade Name Freq PRN Reason Stop Dose Admin Sodium Chloride 1,000 mls @ 999 mls/hr 07/16/20 16:38 07/16/20 16:54 Normal Saline IV 07/16/20 17:38 999 mls/hr BOLUS ONE Administration Piperacillin Sod/Tazobactam 50 mls @ 100 mls/hr 07/16/20 18:11 07/16/20 19:01 Sod 3.375 gm/ Sodium Chloride IV 07/16/20 18:40 Not Given ONETIME ONE Tobramycin 240 mg/ Sodium 100 mls @ 100 mls/hr 07/16/20 18:48 07/16/20 19:31 Chloride IV 07/16/20 18:49 100 mls/hr NOW STA Administration Morphine Sulfate 4 mg 07/16/20 18:12 07/16/20 19:28 Morphine IVPUSH 07/16/20 18:13 Not Given ONETIME ONE Ondansetron HCl 4 mg 07/16/20 17:06 07/16/20 17:29 Zofran IVPUSH 07/16/20 17:07 4 mg ONETIME ONE Administration Oxycodone HCl 5 mg 07/16/20 19:33 07/16/20 20:33 Oxycodone PO 07/16/20 19:34 5 mg NOW STA Administration Departure - Departure Time of Disposition: 18:57 Disposition: Home, Self-Care 01 Clinical Impression: Acute pyelonephritis, Thrombocytopenia - Discharge Information Prescriptions: cephALEXin [Keflex] 500 mg PO QID 14 Days #56 cap Instructions: Pyelonephritis, Adult, [id number] Referrals: Maciel Aden MD [Primary Care Provider] - Forms: ED Department Discharge Additional Instructions: The following information is given to patients seen in the emergency department who are being discharged to home. This information is to outline your options for follow-up care. We provide all patients seen in our emergency department with a follow-up referral. The need for follow-up, as well as the timing and circumstances, are variable depending upon the specifics of your emergency department visit. If you don't have a primary care physician on staff, we will provide you with a referral. We always advise you to contact your personal physician following an emergency department visit to inform them of the circumstance of the visit and for follow-up with them and/or the need for any referrals to a consulting specialist. The emergency department will also refer you to a specialist when appropriate. This referral assures that you have the opportunity for follow-up care with a specialist. All of these measure are taken in an effort to provide you with optimal care, which includes your follow-up. Under all circumstances we always encourage you to contact your private physician who remains a resource for coordinating your care. When calling for follow-up care, please make the office aware that this follow-up is from your recent emergency room visit. If for any reason you are refused follow-up, please contact the [facility] Emergency Department at and asked to speak to the emergency department charge nurse. [facility] - Urology, Dr. Flaherty [address] [place] [id number] 1. Take medication as prescribed. You can use ibuprofen as directed for pain and discomfort. 2. Follow-up with Dr. Alcala on Monday as discussed. Also follow up with your primary care for all other incidental findings as discussed. Return to the ED as needed and as discussed. Sepsis Event Note (ED) - Evaluation Sepsis Screening Result: No Definite Risk - Focused Exam Vital Signs: Vital Signs Temp Pulse Resp BP Pulse Ox 07/16/20 20:37 97 F 86 18 138/48 L 98 07/16/20 19:05 82 16 145/48 H 96 07/16/20 16:15 97.6 F 76 18 151/58 H 96
[2020-07-16] MEDS ORDERED: Piperacillin/Tazobactam 3.375 GM in Sodium Chloride 0.9% 50 ML IV ONE (18:11)
[2020-07-16] MEDS ORDERED: Morphine 4 MG/ML Syringe IVPUSH ONE (18:12)
--- NOTE | 2020-07-16 18:34 | CT ---
INDICATION: Left flank pain and dysuria. TECHNIQUE: Axial images were obtained from the diaphragm to the pubic symphysis. Reformats were obtained in the coronal and sagittal plane. IV Contrast: None Oral Contrast: None COMPARISON: Abdomen and pelvis CT 12/28/2019 FINDINGS: Lower chest: Mild bibasilar discoid atelectasis. Trace left pleural effusion. Liver: Nodular contour to the liver without focal lesion for the unenhanced technique. Gallbladder and bile ducts: Status post cholecystectomy. Spleen: Moderate splenomegaly without focal lesion. Pancreas: Mild pancreatic atrophy. Adrenal glands: Unremarkable. No nodules. Kidneys: Kidneys are normal in contour with dilatation left renal pelvis suggesting ureteropelvic junction obstruction. Distal to this the ureter is decompressed. There are some calcifications near the proximal ureter although these appear to be external. Vasculature: Unremarkable. GI tract: Linear densities within the upper abdomen consistent with varices. Cornelius hepatis lymphadenopathy measures up to 1.8 centimeters. Mild haziness in the central mesentery with trace ascites. Supraumbilical and umbilical hernia into which are fat containing with a small amount of ascites in the umbilical hernia. Pelvis: Bladder unremarkable. Status posthysterectomy. Bones: Degenerative disc disease lumbar spine. Old compression fracture L2. IMPRESSION: 1. Prominent dilatation of the left renal pelvis with transition at the ureteropelvic junction. Distal to this the left ureter is decompressed. Differential diagnosis includes infection, ureteropelvic junction stenosis, occult mucosal lesion or noncalcified stone. 2. Cirrhotic morphology of the liver with moderate splenomegaly and trace ascites. 3. Other incidental findings as detailed above. Please note that all CT scans at this facility use dose modulation, iterative reconstruction, and/or weight-based dosing when appropriate to reduce radiation dose to as low as reasonably achievable. Dictated by Robert Choudhary MD @ Jul 16 2020 6:16PM Signed by Dr. Robert Choudhary @ Jul 16 2020 6:33PM
[2020-07-16] MEDS ORDERED: oxyCODONE 5 MG Tab PO STA (19:33)
[2020-07-16 20:39] VITALS: BP 138/48; PULSE 86
== END 2020-07-16 20:41 | disposition home or self-care (01) ==
LOC: MW.ED 15:17
DX: N10 Acute pyelonephritis (principal); D69.6 Thrombocytopenia, unspecified; I10 Essential (primary) hypertension; E11.9 Type 2 diabetes mellitus without complications; E66.9 Obesity, unspecified; Z68.41 Body mass index [BMI] 40.0-44.9, adult; Z91.048 Other nonmedicinal substance allergy status; Z88.1 Allergy status to other antibiotic agents; Z88.2 Allergy status to sulfonamides; Z88.5 Allergy status to narcotic agent; Z79.4 Long term (current) use of insulin; Z79.899 Other long term (current) drug therapy
CPT/HCPCS: 36415; 74176; 80053; 81025; 83605; 83690; 85025; 87040; 96365; 96375; 99284; A9270; J2405; J3260; J7030; 99283

== ENCOUNTER 2020-11-12 18:34 | Emergency (ER) | payer OTHER ==
[2020-11-12] MEDS ORDERED: Lactated Ringers 1,000 ML IV SCH (21:15)
[2020-11-12 22:00] LABS: BLOOD UREA NITROGEN,BUN 18 mg/dL (7.0-18.0); CARBON DIOXIDE,CO2 29.7 mmol/L (21.0-32.0); CHLORIDE,CL 98 mmol/L (98-107); GLUCOSE RANDOM 148 mg/dL (74-106); POTASSIUM,K 4.2 mmol/L (3.5-5.1); SODIUM,NA 135 mmol/L (136-145)
[2020-11-12] MEDS ORDERED: Magnesium Sulfate (4.06 MEQ/ML) 5 GM/10 ML SDV IV STA (22:34)
[2020-11-12] MEDS ORDERED: Magnesium Sulfate/Water 2 GM/50 ML BAG IV ONE (23:00)
--- NOTE | 2020-11-13 01:50 | EDM.PDOC ---
ED HPI GENERAL MEDICAL PROBLEM - General Chief Complaint: Gastrointestinal Problem Stated Complaint: DIARHEA Time Seen by Provider: 11/12/20 20:36 - History of Present Illness INITIAL COMMENTS - FREE TEXT/NARRATIVE: CHIEF COMPLAINT(S): Diarrhea HISTORY OF PRESENT ILLNESS: This is a 65-year-old woman with a history of prior urinary tract infection, diabetes mellitus who presents to the emergency department with diarrhea. The patient states that off and on for the past 2 weeks she has been experiencing nausea and diarrhea. She states that she has had 3-4 episodes of diarrhea today alone. She describes them as watery without any blood. She states that she is concerned because she was started on spironolactone for her edema and it seems that it is caused by this medication. She states that she is not seeing her primary care physician regarding reevaluation of this. She denies any fevers, chills, abdominal pain. She denies any headache, blurry vision, numbness, tingling, weakness. She denies any chest pain or shortness of breath. She denies any runny nose, congestion, sore throat. REVIEW OF SYSTEMS: Constitutional: Denies fever, chills. Eyes: Denies eye pain Ears, Nose, Mouth, & Throat: Denies earache Cardiovascular: Denies chest pain Respiratory: Denies shortness of breath Gastrointestinal: Positive for nausea, vomiting, diarrhea. Denies hematochezia, hematemesis, bilious emesis, abdominal pain Genitourinary: Denies hematuria dysuria Skin:Denies a rash MSK: Denies joint pain Neurological: Denies blurred vision Psychiatric: Denies depression PAST MEDICAL HISTORY: As per history of present illness and as reviewed below otherwise noncontributory. SURGICAL HISTORY: As per history of present illness and as reviewed below otherwise noncontributory. SOCIAL HISTORY: As per history of present illness and as reviewed below otherwise noncontributory. FAMILY HISTORY: As per history of present illness and as reviewed below otherwise noncontributory. EXAMINATION OF ORGAN SYSTEMS/BODY AREAS: Constitutional: Blood pressure is 146/65, heart rate 89, respiratory rate 18 with an oxygen saturation of 97% on room air. Temperature 37.2 General: Overall well-appearing woman who is in no acute distress Psychiatric: Appropriate mood and affect. Eyes: No scleral icterus or conjunctival erythema ENMT: Mouth is dry. No pharyngeal erythema. No tonsillar exudates or swelling. Cardiovascular: Regular, rate, and rhythm. No gallops, murmurs, or rubs. Bilateral upper extremity pulses symmetric and intact. No peripheral edema. No JVD. Respiratory: Lungs clear to auscultation bilaterally. No wheezes, rales, or rhonchi. Gastrointestinal: Soft, non-tender, non-distended. Normoactive bowel sounds no rebound or guarding. Genitourinary: No suprapubic tenderness Musculoskeletal: Normal range of motion. Skin: No lesions or abrasions. Neurological: Alert, GCS 15 MEDICAL DECISION MAKING AND COURSE IN THE ED WITH INTERPRETATION/REVIEW OF DIAGNOSTIC STUDIES: This is a 65-year-old woman with a past medical history of dependent edema who comes to the emergency department with nausea and vomiting for the last 2 weeks intermittently without any signs of severe dehydration who states that she is having 3-4 bowel movements a day after using her spironolactone. At this time the patient's vitals are normal. Will obtain CBC, CMP, magnesium. We will send off a C. difficile antigen toxin. This is highly unlikely as the patient has not had any recent antibiotic use or history of C. difficile. We will provide the patient 1 L of lactated Ringer's bolus. I did send a order for stool culture and Shiga toxin given the duration of her symptoms. We will see if patient is able to have a bowel movement in the emergency department. Laboratory: CBC is unremarkable except for a platelet count of 89. This is increased from prior on October 27, 2020. There is hyponatremia 135, hyperglycemia at 148, hyperbilirubinemia with a total bilirubin of 3.0 and a transaminitis with an AST of 50. Hypomagnesemia at 1.6 and hypoalbuminemia at 2.9. All of these appear to be around the patient's baseline. C. difficile toxin/antigen is negative. The patient was able to have a bowel movement however there was not a significant amount therefore no culture or sugar toxin could be ran. We will observe the patient in the emergency department for another bowel movement so that we can send this lab. The patient reported improvement. She has only had 1 bowel movement wealthy in the emergency department. Her vitals have remained normal. He did have an additional bowel movement however she also urinated in the same sample. At this time the patient's vitals are completely normal she is not having large-volume diarrhea therefore I did discuss with patient that she needs to follow-up with her primary care physician for further evaluation of side effects of her medication versus diarrhea. I discussed if she had any new or worsening symptoms she needed to return to the emergency department. Otherwise primary care physician in 1 3 days. DISPOSITION: The patient was discharged home in stable condition. The patient will follow up with primary care physician and 1 to 3 days CONDITION: Fair PROCEDURES: None FINAL IMPRESSION(S)/DIAGNOSES: 1. Acute intermittent diarrhea 2. Acute intermittent nausea and vomiting Marvin Winchester M.D. - Related Data Allergies Allergy/AdvReac Type Severity Reaction Status Date / Time adhesive tape Allergy Itching Verified 11/12/20 20:28 amoxicillin trihydrate Allergy Diarrhea Verified 11/12/20 20:28 [From Augmentin] ciprofloxacin [From Cipro] Allergy Other Verified 11/12/20 20:28 clindamycin Allergy Nausea and Verified 11/12/20 20:28 Vomiting potassium clavulanate Allergy Rash Verified 11/12/20 20:28 [From Augmentin] sulfamethoxazole Allergy Nausea and Verified 11/12/20 20:28 [From Bactrim] Vomiting Tetanus Vaccines and Toxoid Allergy Swelling Verified 11/12/20 20:28 [Tetanus Vaccines & Toxoid] tramadol Allergy Rash Verified 11/12/20 20:28 trimethoprim [From Bactrim] Allergy Nausea and Verified 11/12/20 20:28 Vomiting Home Meds: Home Meds Lisinopril 20 mg PO DAILY 12/26/13 [History] Insulin Degludec [Tresiba] 0 - 50 units SUBCUT DAILY 06/01/18 [History] Exenatide Microspheres [Bydureon Pen] 2 mg SQ WEEKLY 07/16/20 [History] Insulin Aspart (Niacinamide) [Fiasp 100 Unit/ml Flextouch] 32 - 38 unit SQ TIDAC 07/16/20 [History] Spironolactone [Aldactone] 25 mg PO 11/12/20 [History] Past Medical History HEENT History: Reports: None Other HEENT History: wears glasses Cardiovascular History: Reports: Hypertension Other Cardiovascular History: 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 She mentioned to me that the results were positive but she refused the cpap. Gastrointestinal History: Reports: Other (See Below) Other Gastrointestinal History: Stage I Liver Disease, non-alcohol steatohepatitis related-portal hypertension, esophageal varices, THROMBOCYTOPENIA, mild splenomegaly Genitourinary History: Reports: Renal Calculus Other Genitourinary History: lithotripsy last 2015, h/o percutaneous nephrostomy for hydronephrosis [employer] History: Reports: Musculoskeletal History: Reports: Arthritis, Fracture, Osteoarthritis, Osteoporosis Other Musculoskeletal History: Treat arthritis symptoms with [place]over[place] supplement, Hx: fracturing Pelvis '2012 Neurological History: Reports: None Psychiatric History: Reports: Mood Swings Endocrine/Metabolic History: Reports: Diabetes, Type II, Obesity/BMI 30+ Hematologic History: Reports: None Immunologic History: Reports: None Oncologic (Cancer) History: Reports: None Dermatologic History: Reports: Cellulitis Other Dermatologic History: Cellulitus post surgery 07/2015, very sensitive to tapes/adhesives - Infectious Disease History Infectious Disease History: Reports: Chicken Pox, Measles - Past Surgical History Head Surgeries/Procedures: Reports: None HEENT Surgical History: Reports: Oral Surgery GI Surgical History: Reports: Appendectomy, Cholecystectomy, Colonoscopy, EGD, Hernia Repair/Other Other GI Surgeries/Procedures: Umbilical hernia repair, attempt to remove Gallbladder once, [place] for Laparoscopic removal of Gallbladder '2014, liver biopsy diagnosis Stage I liver disease, non-alcohol related Female Surgical History: Reports: Hysterectomy Musculoskeletal Surgical History: Reports: Carpal Tunnel - History Comment History Comment: denies etoh Social & Family History - Family History Family Medical History: No Pertinent Family History Cardiac: Reports: Afib Endocrine/Metabolic: Reports: Diabetes, type II Oncologic: Reports: Leukemia - Tobacco Use Tobacco Use Status *Q: Never Tobacco User - Caffeine Use Caffeine Use: Reports: Coffee, Tea Caffeine Use Comment: 1 cup daily - Recreational Drug Use Recreational Drug Use: No ED ROS GENERAL - Review of Systems Review Of Systems: See Below ED EXAM, GENERAL - Physical Exam Exam: See Below Course - Vital Signs Last Recorded V/S: Last Vital Signs Temp 37.2 C 11/12/20 20:31 Pulse 84 11/13/20 01:58 Resp 19 11/13/20 01:58 BP 152/64 H 11/13/20 01:58 Pulse Ox 97 11/13/20 01:58 - Orders/Labs/Meds Labs: Laboratory Tests 11/12/20 11/12/20 Range/Units 21:20 21:20 WBC 6.75 (4.0-11.0) K/uL RBC 4.00 L (4.30-5.90) M/uL Hgb 13.5 (12.0-16.0) g/dL Hct 38.7 (36.0-46.0) % MCV 96.8 (80.0-98.0) fL MCH 33.8 H (27.0-32.0) pg MCHC 34.9 (31.0-37.0) g/dL RDW Std Deviation 48.0 (28.0-62.0) fl RDW Coeff of Jennifer 14 (11.0-15.0) % Plt Count 89 L (150-400) K/uL MPV 11.50 (7.40-12.00) fL Neut % (Auto) 75.1 (48.0-80.0) % Lymph % (Auto) 12.7 L (16.0-40.0) % Sandoval % (Auto) 11.7 (0.0-15.0) % Eos % (Auto) 0.4 (0.0-7.0) % Baso % (Auto) 0.1 (0.0-1.5) % Neut # (Auto) 5.1 (1.4-5.7) K/uL Lymph # (Auto) 0.9 (0.6-2.4) K/uL Sandoval # (Auto) 0.8 (0.0-0.8) K/uL Eos # (Auto) 0.0 (0.0-0.7) K/uL Baso # (Auto) 0.0 (0.0-0.1) K/uL Nucleated RBC % 0.0 /100WBC Nucleated RBCs # 0 K/uL Sodium 135 L (136-145) mmol/L Potassium 4.2 (3.5-5.1) mmol/L Chloride 98 (98-107) mmol/L Carbon Dioxide 29.7 (21.0-32.0) mmol/L BUN 18 (7.0-18.0) mg/dL Creatinine 0.9 (0.6-1.0) mg/dL Est Cr Clr Drug Dosing 61.41 mL/min Estimated GFR (MDRD) > 60.0 ml/min Glucose 148 H (74-106) mg/dL Calcium 9.2 (8.5-10.1) mg/dL Magnesium 1.6 L (1.8-2.4) mg/dL Total Bilirubin 3.0 H (0.2-1.0) mg/dL AST 50 H (15-37) IU/L ALT 37 (14-63) IU/L Alkaline Phosphatase 88 (46-116) U/L Total Protein 6.8 (6.4-8.2) g/dL Albumin 2.9 L (3.4-5.0) g/dL Globulin 3.9 (2.6-4.0) g/dL Albumin/Globulin Ratio 0.7 L (0.9-1.6) Meds: Medications Discontinued Medications Generic Name Dose Route Start Last Admin Trade Name Neelima PRN Reason Stop Dose Admin Lactated Ringer's 1,000 mls @ 999 mls/hr 11/12/20 21:15 11/12/20 21:24 Ringers, Lactated IV 999 mls/hr ASDIRECTED KERA Administration Magnesium Sulfate 2 gm in 50 mls @ 50 mls/hr 11/12/20 23:00 11/12/20 23:22 Magnesium Sulfate In Water 2 Gm/50 Ml IV 11/12/20 23:59 50 mls/hr NOW ONE Administration Magnesium Sulfate 2 gm 11/12/20 22:34 Magnesium Sulfate (4.06 Meq/Ml) 5 Gm/10 Ml Sdv IV 11/12/20 22:35 ONETIME STA Departure - Departure Time of Disposition: 01:49 Disposition: Home, Self-Care 01 Condition: Fair Clinical Impression: Diarrhea, Hypomagnesemia - Discharge Information *PRESCRIPTION DRUG MONITORING PROGRAM REVIEWED*: No *COPY OF PRESCRIPTION DRUG MONITORING REPORT IN PATIENT ODROTHY: No Instructions: Diarrhea, Adult, Hypomagnesemia, Food Choices to Help Relieve Diarrhea, Adult, Dehydration, Adult, [id number] Referrals: Maciel Aden MD [Primary Care Provider] - Forms: ED Department Discharge Additional Instructions: Your evaluated today on an emergent basis. At this time your labs revealed some low sodium and magnesium otherwise they were around your baseline. I did treat you with fluids and provided you with replenishment of your magnesium. At this time for the diarrhea I recommend that you continue with adequate fluid hydration. This can be done with Gatorade, Pedialyte, and water. Your C. difficile antigen was negative. I do recommend that you follow-up with your primary care physician to discuss the spironolactone. Otherwise please return to the emergency department if you have any bloody stools, fever, or dehydration. [facility] [address] [place] [id number] [id number] The patient is informed of any results of their evaluation and diagnostic workup and all questions are answered. They are given discharge instructions and return precautions. The patient is stable for discharge. The patient states they understand and agree with the plan and that they will return if their symptoms get worse or if they have any new concerns. The following information is given to patients seen in the emergency department who are being discharged to home. This information is to outline your options for follow-up care. We provide all patients seen in our emergency department with a follow-up referral. The need for follow-up, as well as the timing and circumstances, are variable depending upon the specifics of your emergency department visit. If you don't have a primary care physician on staff, we will provide you with a referral. We always advise you to contact your personal physician following an emergency department visit to inform them of the circumstance of the visit and for follow-up with them and/or the need for any referrals to a consulting specialist. The emergency department will also refer you to a specialist when appropriate. This referral assures that you have the opportunity for follow-up care with a specialist. All of these measure are taken in an effort to provide you with optimal care, which includes your follow-up. Under all circumstances we always encourage you to contact your private physician who remains a resource for coordinating your care. When calling for follow-up care, please make the office aware that this follow-up is from your recent emergency room visit. If for any reason you are refused follow-up, please contact the Emergency Department at and asked to speak to the emergency department charge nurse. Sepsis Event Note (ED) - Evaluation Sepsis Screening Result: No Definite Risk
[2020-11-13 01:59] VITALS: BP 152/64; PULSE 84
== END 2020-11-13 01:59 | disposition home or self-care (01) ==
LOC: MW.ED 18:34
DX: R19.7 Diarrhea, unspecified (principal); R11.2 Nausea with vomiting, unspecified; E83.42 Hypomagnesemia; E11.9 Type 2 diabetes mellitus without complications; E66.9 Obesity, unspecified; Z86.16 Personal history of COVID-19; Z68.30 Body mass index [BMI] 30.0-30.9, adult; Z79.899 Other long term (current) drug therapy; Z79.4 Long term (current) use of insulin; Z88.0 Allergy status to penicillin; Z91.048 Other nonmedicinal substance allergy status; Z88.1 Allergy status to other antibiotic agents; Z88.7 Allergy status to serum and vaccine; Z88.5 Allergy status to narcotic agent
CPT/HCPCS: 36415; 80053; 83735; 85025; 87324; 96365; 99284; J3475; J7120; 99283

== ENCOUNTER 2020-12-01 00:31 | Emergency (ER) | payer OTHER ==
[2020-12-01] MEDS ORDERED: Sodium Chloride 0.9% 10 ML Syringe FLUSH PRN (00:49)
[2020-12-01] MEDS ORDERED: Sodium Chloride 0.9% 2.5 ML Syringe FLUSH PRN (00:49)
[2020-12-01] MEDS ORDERED: Sodium Chloride 0.9% 1,000 ML IV ONE (00:49)
[2020-12-01] MEDS ORDERED: Lactated Ringers 1,000 ML IV ONE (00:51)
[2020-12-01 01:11] LABS: BLOOD UREA NITROGEN,BUN 78 mg/dL (7.0-18.0); CARBON DIOXIDE,CO2 21.3 mmol/L (21.0-32.0); CHLORIDE,CL 94 mmol/L (98-107); GLUCOSE RANDOM 223 mg/dL (74-106); LIPASE 38 U/L (73-393); SODIUM,NA 126 mmol/L (136-145)
--- NOTE | 2020-12-01 01:18 | CR ---
For Patients: As a result of the Century Cures Act, medical imaging exams and procedure reports are released immediately into your electronic medical record. You may view this report before your referring provider. If you have questions, please contact your health care provider. INDICATION: Hypotension TECHNIQUE: Chest radiograph 2 views COMPARISON: 04/19/2019 FINDINGS: Severe degradation of image quality noted due to body habitus. Mediastinum: The mediastinum is normal in appearance. Mild to moderate cardiomegaly is present and more prominent than on prior exam. Lung: Moderate pulmonary vascular congestion is present with indistinctness of the pulmonary vessels seen. No sign of pleural effusion seen. No pneumothorax is identified. Bone and Soft tissue: Unremarkable for age. IMPRESSIONS: 1. Moderate pulmonary vascular congestion is present with indistinctness of the pulmonary vessels seen. Findings are suspicious for interstitial pulmonary edema. 2. Mild to moderate cardiomegaly is present and more prominent than on prior exam. Dictated by Primo Montoya MD @ 12/01/2020 1:17:57 AM Dictated by: Primo Montoya MD @ 12/01/2020 01:18:00 (Electronically Signed)
[2020-12-01] MEDS ORDERED: cefTRIAXone 1 GM in Premix Bag 1 BAG IV ONE (02:09)
[2020-12-01] MEDS ORDERED: Lactated Ringers 1,000 ML IV SCH ×3 (02:15→08:00)
--- NOTE | 2020-12-01 02:38 | EDM.PDOC ---
<Errol Taylor - Last Filed: 12/01/20 06:38> ED HPI GENERAL MEDICAL PROBLEM - General Chief Complaint: General Stated Complaint: DEHYDRATION Time Seen by Provider: 12/01/20 00:40 - History of Present Illness INITIAL COMMENTS - FREE TEXT/NARRATIVE: HISTORY AND PHYSICAL: History of present illness: This is a 65-year-old female with a history significant for Samuel with CT evidence of cirrhosis on August 02, 2020, insulin-dependent diabetes with a reported hemoglobin A1c of 6.1 a couple months ago, on lisinopril secondary to protection of her kidney from her diabetes and reports not for hypertension, ur inary tract infections, kidney stones, who presents ER today secondary to bilateral lower extremity muscle cramping that concerned her for possible dehydration. Patient denies any recent fevers, shakes, chills. Patient reports that she has been nauseous but has not had any recent vomiting. Patient reports she has had one episode of diarrhea today. Patient denies any melena or bright red blood per rectum. Patient denies any recent URI symptoms or cough. Patient denies any sore throat. Patient denies any abdominal pain or discomfort. Patient reports that she feels weak and tired. Review of systems: As per history of present illness and below otherwise all systems reviewed and negative. Past medical history: As per history of present illness and as reviewed below otherwise noncont ributory. Surgical history: As per history of present illness and as reviewed below otherwise noncontributory. Social history: No reported history of drug abuse. Family history: As per history of present illness and as reviewed below otherwise noncontributory. Physical exam: HEENT: Atraumatic, normocephalic, pupils reactive, negative for conjunctival pallor or scleral icterus, mucous membranes moist, throat clear, neck supple, nontender, trachea midline. Lungs: Clear to auscultation, breath sounds equal bilaterally, chest nontender. Heart: S1S2, regular, negative for clicks, rubs, or JVD. Abdomen: Soft, nondistended, nontender. Negative for masses or hepatosplenomegaly. Negative for costovertebral tenderness. Pelvis: Stable nontender. Genitourinary: Deferred. Rectal: Deferred. Extremities: Atraumatic, negative for cords or calf pain. Neurovascular unremarkable. Neuro: Awake, alert, oriented. Cranial nerves II through XII unremarkable. Cerebellum unremarkable. Motor and sensory unremarkable throughout. Exam nonfocal. Diagnostics: Patient's labs are significant for a white count of 17.5, hemoglobin of 10.6, platelet count of only 20 5K. Patient has 77 segs with 4 bands 17 monocytes and 1 lymphocyte. Patient's INR is 2.14. Patient's electrolytes are significant for sodium of 126, potassium 5.0, chloride of 94, bicarb of 21, anion gap of 11, BUN/creatinine of 78 and 3.4, patient with a lactic acid level of 5.1. Patient's magnesium was 1.7. Patient's alk phos and total bilirubin were 127 and 4.2. Patient's ALT and AST were 98 and 183. Patient's urinalysis was consistent with a urinary tract infection that showed too numerous to count WBCs, 3+ bacteria, 10-20 RBCs, moderate leukocyte Estrace, patient's COVID-19 test was negative. Patient's CT scan of her abdomen pelvis revealed severe left renal pelviectasis which is present without any interval change in is likely due to chronic UPJ obstruction without evidence of kidney stone causing the obstruction. There were no significant inflammatory changes around the kidney. The enlarged kidney appears to be chronic and unchanged from her prior CT scan. Patient does have a 3 mm stone in the lower pole of the kidney and a 1 mm stone in the right mid zone of the kidney causing no obstruction. Patient's CT scan reveals a nodular capsule or contour consistent with micronodular cirrhosis of the kidney. Therapeutics: [] Assessment and plan: This is a 65-year-old female with history significant for diabetes, Samuel, cirrhosis, chronic UPJ obstruction with chronic renal pelviectasis who presents ER today secondary to generalized fatigue and "charley horses "in the back of both legs that started today. Patient thought that her electrolytes might be off secondary to her diuretics. Upon arrival to the ED, the patient was noted to be somewhat fatigued but is easily arousable and is alert awake and orient x3 and mentating well. Patient was noted to be markedly [id number] and when compared to her prior ER visits this is atypical for her. Patient's blood pressure has been running with a systolic blood pressure of 80-90 and normally her systolic blood pressures have been in the 1 30-1 50 range in the past. Given the patient's presentation, her elevated white blood cell count, elevated lactic acid level, and her abnormal UA, it was presumed that the patient is septic and was started on Rocephin for likely urinary tract infection as a source. Patient was given 30 mL/kg of NSS/lactated Ringer's without any significant improvement in her blood pressure. A left subclavian central line was placed after informed consent was obtained from the patient and norepinephrine will be initiated for support of her blood pressure. Patient does appear to have a markedly elevated BUN and creatinine in the 20-1 range that could be consistent with prerenal azotemia. Patient's creatinine has been elevated in the past that she reports that she has been told that she has elevated creatinines in the past. Patient also has elevated LFTs which are most likely related to her Samuel and her cirrhosis. Patient's LFTs have been elevated in the past although not quite as high as they are today. Patient's last bilirubin approximately 2.5 compared to her level 4.2 today. Patient's blood pressure remained low in the ED despite 30 cc/kg bolus of fluids patient's blood pressure was in the systolic blood pressure range of 80. After informed consent was obtained from the patient, a left subclavian line was inserted and norepinephrine 2 mics per minute were initiated. Patient's blood pressure significantly improved with a blood pressure of 115/54 at this time. Case discussed with [facility], no ICU bed availability at this time for transfer. 6:30 AM: Case discussed with [facility] and discussed with Dr. Leon who is the mails supervisor. He is agreed to assist us with inpatient level of care this patient and to assist with managing her sepsis/hepatorenal syndrome. Critical Care: The high probability of sudden, clinically significant deterioration in the patient's condition required the highest level of my preparedness to intervene urgently. The services I provided to this patient were to treat and/or prevent clinically significant deterioration. Services included the following: chart data review, reviewing nursing notes and/or old charts, do cumentation time, engagement quality consultant collaboration regarding findings and treatment options, medication orders and management, direct patient care, vital sign assessments and ordering, interpreting and reviewing diagnostic studies/lab tests. Aggregate critical care time includes only time during which I was engaged inwork directly related to the patient's care, as described above, whether at the bedside or elsewhere in the Emergency Department. It did not include time spent performing other reported procedures or the services of residents, students, nurses or physician assistants. Critical Care Time: 35 minutes Right subclavian vein identified using landmark techniques. Maximum sterile barrier technique (MSBT) employed. 5 cc of 1% lidocaine infiltrated for local anesthesia. After venous puncture with needle, a 7 D[place] triple lumen catheter 20 cm was inserted over guidewire using Seldinger technique. Guidewire removed and inspected. It was intact. Good blood return at all ports, each of which were flushed with saline. Catheter hub sutured into place. DSD applied by myself. The patient tolerated the procedure well. There were no complications. [Post procedure x-ray obtained, which I will review.] Definitive disposition and diagnosis as appropriate pending reevaluation and review of above. - Related Data Allergies Allergy/AdvReac Type Severity Reaction Status Date / Time adhesive tape Allergy Itching Verified 12/01/20 00:53 amoxicillin trihydrate Allergy Diarrhea Verified 12/01/20 00:53 [From Augmentin] ciprofloxacin [From Cipro] Allergy Other Verified 12/01/20 00:53 clindamycin Allergy Nausea and Verified 12/01/20 00:53 Vomiting potassium clavulanate Allergy Rash Verified 12/01/20 00:53 [From Augmentin] sulfamethoxazole Allergy Nausea and Verified 12/01/20 00:53 [From Bactrim] Vomiting Tetanus Vaccines and Toxoid Allergy Swelling Verified 12/01/20 00:53 [Tetanus Vaccines & Toxoid] tramadol Allergy Rash Verified 12/01/20 00:53 trimethoprim [From Bactrim] Allergy Nausea and Verified 12/01/20 00:53 Vomiting Home Meds: Home Meds Lisinopril 20 mg PO DAILY 12/26/13 [History] Insulin Degludec [Tresiba] 0 - 50 units SUBCUT DAILY 06/01/18 [History] Exenatide Microspheres [Bydureon Pen] 2 mg SQ WEEKLY 07/16/20 [History] Insulin Aspart (Niacinamide) [Fiasp 100 Unit/ml Flextouch] 32 - 38 unit SQ TIDAC 07/16/20 [History] Spironolactone [Aldactone] 25 mg PO 11/12/20 [History] Past Medical History HEENT History: Reports: None Other HEENT History: wears glasses Cardiovascular History: Reports: Hypertension Other Cardiovascular History: 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 She mentioned to me that the results were positive but she refused the cpap. 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: Musculoskeletal History: Reports: Arthritis, Fracture, Osteoarthritis, Osteoporosis Other Musculoskeletal History: Treat arthritis symptoms with Alover[place] supplement, Hx: fracturing Pelvis '2012 Neurological History: Reports: None Psychiatric History: Reports: Mood Swings Endocrine/Metabolic History: Reports: Diabetes, Type II, Obesity/BMI 30+ Hematologic History: Reports: None Immunologic History: Reports: None Oncologic (Cancer) History: Reports: None Dermatologic History: Reports: Cellulitis Other Dermatologic History: Cellulitus post surgery 07/2015, very sensitive to tapes/adhesives - Infectious Disease History Infectious Disease History: Reports: Chicken Pox, Measles - Past Surgical History Head Surgeries/Procedures: Reports: None HEENT Surgical History: Reports: Oral Surgery GI Surgical History: Reports: Appendectomy, Cholecystectomy, Colonoscopy, EGD, Hernia Repair/Other Other GI Surgeries/Procedures: Umbilical hernia repair, attempt to remove Gallbladder once, [place] for Laparoscopic removal of Gallbladder '2014, liver biopsy diagnosis Stage I liver disease, non-alcohol related Female Surgical History: Reports: Hysterectomy Musculoskeletal Surgical History: Reports: Carpal Tunnel - History Comment History Comment: denies etoh Social & Family History - Family History Family Medical History: No Pertinent Family History Cardiac: Reports: Afib Endocrine/Metabolic: Reports: Diabetes, type II Oncologic: Reports: Leukemia - Tobacco Use Tobacco Use Status *Q: Never Tobacco User - Caffeine Use Caffeine Use: Reports: Coffee, Tea Caffeine Use Comment: 1 cup daily - Recreational Drug Use Recreational Drug Use: No ED ROS GENERAL - Review of Systems Review Of Systems: See Below ED EXAM, GENERAL - Physical Exam Exam: See Below ED CENTRAL LINE INSERTION - Central Line Insertion Central Line Indication: IV access, medication administration Site: subclavian (L) Prep: CDC/MBT Guidelines, Sterile Drapes, Betadine, Chlorhexidine Lumen: triple Gauge: 7Fr Local Anesthesia - Lidocaine (Xylocaine): 1% Plain Local Anesthetic Volume: 5cc Ultrasound guided: No Guidewire and dilator removed intact: Yes Micropuncture kit used: Yes Complications: No Secured with suture: Yes Post placement confirmation: CXR, all ports aspirated, all ports flushed CXR post-procedure: no pneumothorax, no hemothorax Dressing applied: by provider, chlorhexidine disc used, op-site dressing #1 Interpretation EKG Interpretation Comments: EKG: As interpreted by ER physician: Brandon: Nonspecific ST-T wave abnormalities Normal axis No evidence of ST elevation MS Normal sinus rhythm heart rate of 75 Departure - Departure Time of Disposition: 06:41 Disposition: DC/Tfer to Acute Hospital 02 Condition: Serious Clinical Impression: Hepatorenal syndrome, Sepsis, Thrombocytopenia, Anemia, Coagulopathy, Cirrhosis, SAMUEL (nonalcoholic steatohepatitis), Acute renal failure, Shock circulatory - Discharge Information Referrals: PCP,None [Primary Care Provider] - Forms: ED Department Discharge Sepsis Event Note (ED) - Evaluation Sepsis Screening Result: No Definite Risk <Soham Tracey - Last Filed: 12/01/20 08:03> #1 Interpretation EKG Date: 12/01/20 Time: 07:42 Rhythm: Other (sinus tachy) Rate (Beats/Min): 165 ST-T: Normal Course - Vital Signs Last Recorded V/S: Last Vital Signs Temp 97.6 F 12/01/20 00:33 Pulse 144 H 12/01/20 07:45 Resp 18 12/01/20 07:45 BP 86/36 L 12/01/20 07:45 Pulse Ox 98 12/01/20 07:45 - Orders/Labs/Meds Orders: Active Orders 24 hr Category Date Time Status EKG Documentation Completion [RC] AM Care 12/01/20 00:49 Active CULTURE BLOOD [BC] Stat Lab 12/01/20 01:00 Received CULTURE BLOOD [BC] Stat Lab 12/01/20 01:08 Received Lactated Ringers [Ringers, Lactated] 1,000 ml Med 12/01/20 02:15 Active IV .BOLUS Lactated Ringers [Ringers, Lactated] 1,000 ml Med 12/01/20 02:15 Active IV .BOLUS Lactated Ringers [Ringers, Lactated] 1,000 ml Med 12/01/20 08:00 Active IV ASDIRECTED Norepinephrine Bit/0.9 % NaCl [Norepinephr-0.9% NaCl 4 Med 12/01/20 05:00 Active mg/250] 4 mg in 250 ml IV TITRATE Phenylephrine [Reji-Synephrine] 10 mg Med 12/01/20 08:00 Active Sodium Chloride 0.9% [Normal Saline] 99 ml IV TITRATE Sodium Chloride 0.9% [Saline Flush] Med 12/01/20 00:49 Active 10 ml FLUSH ASDIRECTED PRN Sodium Chloride 0.9% [Saline Flush] Med 12/01/20 00:49 Active 2.5 ml FLUSH ASDIRECTED PRN Vasopressin 100 units Med 12/01/20 08:00 Active Sodium Chloride 0.9% [Normal Saline] 95 ml IV TITRATE Blood Culture x2 Reflex Set [OM.PC] Stat Ot 12/01/20 00:50 Ordered Saline Lock Insert [OM.PC] Stat Ot 12/01/20 00:49 Ordered Medication Orders Lactated Ringer's (Ringers, Lactated) 1,000 mls @ 999 mls/hr IV .BOLUS KERA Last Admin: 12/01/20 02:23 Dose: 999 mls/hr Documented by: EMILEE Lactated Ringer's (Ringers, Lactated) 1,000 mls @ 999 mls/hr IV .BOLUS KERA Last Admin: 12/01/20 02:31 Dose: 999 mls/hr Documented by: EMILEE Norepinephrine Bitartrate (Norepinephr-0.9% Nacl 4 Mg/250) 4 mg in 250 mls @ 7.5 mls/hr IV TITRATE KERA; Protocol Last Titration: 12/01/20 07:14 Dose: 3 mcg/min, 11.25 mls/hr Documented by: Titration: 12/01/20 06:59 Dose: 4 mcg/min, 15 mls/hr Documented by: Admin: 12/01/20 05:12 Dose: 2 mcg/min, 7.5 mls/hr Documented by: EMILEE Phenylephrine HCl 10 mg/ (Sodium Chloride) 100 mls @ 24 mls/hr IV TITRATE KERA; Protocol Lactated Ringer's (Ringers, Lactated) 1,000 mls @ 150 mls/hr IV ASDIRECTED KERA Vasopressin 100 units/ Sodium (Chloride) 100 mls @ 0.6 mls/hr IV TITRATE KERA; Protocol Sodium Chloride (Sodium Chloride 0.9% 10 Ml Syringe) 10 ml FLUSH ASDIRECTED PRN PRN Reason: Keep Vein Open Last Admin: 12/01/20 00:58 Dose: 10 ml Documented by: EMILEE Sodium Chloride (Sodium Chloride 0.9% 2.5 Ml Syringe) 2.5 ml FLUSH ASDIRECTED PRN PRN Reason: Keep Vein Open Last Admin: 12/01/20 00:57 Dose: 2.5 ml Documented by: EMILEE Labs: Laboratory Tests 12/01/20 12/01/20 12/01/20 Range/Units 00:45 00:45 00:45 WBC 17.85 H (4.0-11.0) K/uL RBC 3.14 L (4.30-5.90) M/uL Hgb 10.6 L (12.0-16.0) g/dL Hct 30.3 L (36.0-46.0) % MCV 96.5 (80.0-98.0) fL MCH 33.8 H (27.0-32.0) pg MCHC 35.0 (31.0-37.0) g/dL RDW Std Deviation 47.1 (28.0-62.0) fl RDW Coeff of Jennifer 14 (11.0-15.0) % Plt Count 25 L (150-400) K/uL Add Manual Diff YES Neutrophils % (Manual) 77 (48.0-80.0) % Band Neutrophils % 4 % Lymphocytes % (Manual) 1 L (16.0-40.0) % Monocytes % (Manual) 17 H (0.0-15.0) % Eosinophils % (Manual) 1 (0.0-7.0) % Absolute Seg Neuts 13.7 H (1.4-5.7) Band Neutrophils # 0.7 Lymphocytes # (Manual) 0.2 L (0.6-2.4) Monocytes # (Manual) 3.0 H (0.0-0.8) Eosinophils # (Manual) 0.2 (0.0-0.7) INR APTT 37.4 H (18.6-31.3) SEC Sodium 126 L (136-145) mmol/L Potassium 5.0 (3.5-5.1) mmol/L Chloride 94 L (98-107) mmol/L Carbon Dioxide 21.3 (21.0-32.0) mmol/L BUN 78 H (7.0-18.0) mg/dL Creatinine 3.4 H (0.6-1.0) mg/dL Est Cr Clr Drug Dosing 16.26 mL/min Estimated GFR (MDRD) 13.6 ml/min Glucose 223 H (74-106) mg/dL Lactic Acid (0.4-2.0) mmol/L Calcium 7.2 L (8.5-10.1) mg/dL Magnesium 1.7 L (1.8-2.4) mg/dL Total Bilirubin 4.2 H (0.2-1.0) mg/dL AST 183 H (15-37) IU/L ALT 90 H (14-63) IU/L Alkaline Phosphatase 127 H (46-116) U/L Troponin I < 0.050 (0.000-0.056) ng/mL B-Natriuretic Peptide (<100) PG/ML Total Protein 5.8 L (6.4-8.2) g/dL Albumin 1.5 L (3.4-5.0) g/dL Globulin 4.3 H (2.6-4.0) g/dL Albumin/Globulin Ratio 0.4 L (0.9-1.6) Lipase 38 L (73-393) U/L Urine Color Urine Appearance Urine pH (5.0-8.0) Ur Specific [place] (1.001-1.035) Urine Protein (NEGATIVE) mg/dL Urine Glucose (UA) (NEGATIVE) mg/dL Urine Ketones (NEGATIVE) mg/dL Urine Occult Blood (NEGATIVE) Urine Nitrite (NEGATIVE) Urine Bilirubin (NEGATIVE) Urine Ictotest Urine Urobilinogen (<2.0) EU/dL Ur Leukocyte Esterase (NEGATIVE) Urine RBC (0-2/HPF) Urine WBC (0-5/HPF) Ur Epithelial Cells (NONE-FEW) Urine Bacteria (NEGATIVE) SARS-CoV-2 RNA (CIERRA) (NEGATIVE) 12/01/20 12/01/20 12/01/20 Range/Units 00:45 01:00 01:28 WBC (4.0-11.0) K/uL RBC (4.30-5.90) M/uL Hgb (12.0-16.0) g/dL Hct (36.0-46.0) % MCV (80.0-98.0) fL MCH (27.0-32.0) pg MCHC (31.0-37.0) g/dL RDW Std Deviation (28.0-62.0) fl RDW Coeff of Jennifer (11.0-15.0) % Plt Count (150-400) K/uL Add Manual Diff Neutrophils % (Manual) (48.0-80.0) % Band Neutrophils % % Lymphocytes % (Manual) (16.0-40.0) % Monocytes % (Manual) (0.0-15.0) % Eosinophils % (Manual) (0.0-7.0) % Absolute Seg Neuts (1.4-5.7) Band Neutrophils # Lymphocytes # (Manual) (0.6-2.4) Monocytes # (Manual) (0.0-0.8) Eosinophils # (Manual) (0.0-0.7) INR 2.14 APTT (18.6-31.3) SEC Sodium (136-145) mmol/L Potassium (3.5-5.1) mmol/L Chloride (98-107) mmol/L Carbon Dioxide (21.0-32.0) mmol/L BUN (7.0-18.0) mg/dL Creatinine (0.6-1.0) mg/dL Est Cr Clr Drug Dosing mL/min Estimated GFR (MDRD) ml/min Glucose (74-106) mg/dL Lactic Acid 5.1 H* (0.4-2.0) mmol/L Calcium (8.5-10.1) mg/dL Magnesium (1.8-2.4) mg/dL Total Bilirubin (0.2-1.0) mg/dL AST (15-37) IU/L ALT (14-63) IU/L Alkaline Phosphatase (46-116) U/L Troponin I (0.000-0.056) ng/mL B-Natriuretic Peptide (<100) PG/ML Total Protein (6.4-8.2) g/dL Albumin (3.4-5.0) g/dL Globulin (2.6-4.0) g/dL Albumin/Globulin Ratio (0.9-1.6) Lipase (73-393) U/L Urine Color Urine Appearance Urine pH (5.0-8.0) Ur Specific [place] (1.001-1.035) Urine Protein (NEGATIVE) mg/dL Urine Glucose (UA) (NEGATIVE) mg/dL Urine Ketones (NEGATIVE) mg/dL Urine Occult Blood (NEGATIVE) Urine Nitrite (NEGATIVE) Urine Bilirubin (NEGATIVE) Urine Ictotest Urine Urobilinogen (<2.0) EU/dL Ur Leukocyte Esterase (NEGATIVE) Urine RBC (0-2/HPF) Urine WBC (0-5/HPF) Ur Epithelial Cells (NONE-FEW) Urine Bacteria (NEGATIVE) SARS-CoV-2 RNA (CIERRA) NEGATIVE (NEGATIVE) 12/01/20 12/01/20 12/01/20 Range/Units 01:28 04:34 04:34 WBC (4.0-11.0) K/uL RBC (4.30-5.90) M/uL Hgb (12.0-16.0) g/dL Hct (36.0-46.0) % MCV (80.0-98.0) fL MCH (27.0-32.0) pg MCHC (31.0-37.0) g/dL RDW Std Deviation (28.0-62.0) fl RDW Coeff of Jennifer (11.0-15.0) % Plt Count (150-400) K/uL Add Manual Diff Neutrophils % (Manual) (48.0-80.0) % Band Neutrophils % % Lymphocytes % (Manual) (16.0-40.0) % Monocytes % (Manual) (0.0-15.0) % Eosinophils % (Manual) (0.0-7.0) % Absolute Seg Neuts (1.4-5.7) Band Neutrophils # Lymphocytes # (Manual) (0.6-2.4) Monocytes # (Manual) (0.0-0.8) Eosinophils # (Manual) (0.0-0.7) INR APTT (18.6-31.3) SEC Sodium (136-145) mmol/L Potassium (3.5-5.1) mmol/L Chloride (98-107) mmol/L Carbon Dioxide (21.0-32.0) mmol/L BUN (7.0-18.0) mg/dL Creatinine (0.6-1.0) mg/dL Est Cr Clr Drug Dosing mL/min Estimated GFR (MDRD) ml/min Glucose (74-106) mg/dL Lactic Acid 4.1 H* (0.4-2.0) mmol/L Calcium (8.5-10.1) mg/dL Magnesium (1.8-2.4) mg/dL Total Bilirubin (0.2-1.0) mg/dL AST (15-37) IU/L ALT (14-63) IU/L Alkaline Phosphatase (46-116) U/L Troponin I (0.000-0.056) ng/mL B-Natriuretic Peptide 114 H (<100) PG/ML Total Protein (6.4-8.2) g/dL Albumin (3.4-5.0) g/dL Globulin (2.6-4.0) g/dL Albumin/Globulin Ratio (0.9-1.6) Lipase (73-393) U/L Urine Color YELLOW Urine Appearance CLOUDY Urine pH 5.5 (5.0-8.0) Ur Specific [place] 1.020 (1.001-1.035) Urine Protein 30 H (NEGATIVE) mg/dL Urine Glucose (UA) NEGATIVE (NEGATIVE) mg/dL Urine Ketones TRACE H (NEGATIVE) mg/dL Urine Occult Blood LARGE H (NEGATIVE) Urine Nitrite NEGATIVE (NEGATIVE) Urine Bilirubin SMALL H (NEGATIVE) Urine Ictotest NEGATIVE Urine Urobilinogen 0.2 (<2.0) EU/dL Ur Leukocyte Esterase MODERATE H (NEGATIVE) Urine RBC 10-20 (0-2/HPF) Urine WBC TO NUMEROUS TO COUNT H (0-5/HPF) Ur Epithelial Cells FEW (NONE-FEW) Urine Bacteria 3+ H (NEGATIVE) SARS-CoV-2 RNA (CIERRA) (NEGATIVE) 12/01/20 Range/Units 05:07 WBC (4.0-11.0) K/uL RBC (4.30-5.90) M/uL Hgb (12.0-16.0) g/dL Hct (36.0-46.0) % MCV (80.0-98.0) fL MCH (27.0-32.0) pg MCHC (31.0-37.0) g/dL RDW Std Deviation (28.0-62.0) fl RDW Coeff of Jennifer (11.0-15.0) % Plt Count (150-400) K/uL Add Manual Diff Neutrophils % (Manual) (48.0-80.0) % Band Neutrophils % % Lymphocytes % (Manual) (16.0-40.0) % Monocytes % (Manual) (0.0-15.0) % Eosinophils % (Manual) (0.0-7.0) % Absolute Seg Neuts (1.4-5.7) Band Neutrophils # Lymphocytes # (Manual) (0.6-2.4) Monocytes # (Manual) (0.0-0.8) Eosinophils # (Manual) (0.0-0.7) INR APTT (18.6-31.3) SEC Sodium 127 L (136-145) mmol/L Potassium 4.7 (3.5-5.1) mmol/L Chloride 97 L (98-107) mmol/L Carbon Dioxide 24.1 (21.0-32.0) mmol/L BUN 74 H (7.0-18.0) mg/dL Creatinine 3.0 H (0.6-1.0) mg/dL Est Cr Clr Drug Dosing 18.42 mL/min Estimated GFR (MDRD) 15.7 ml/min Glucose 194 H (74-106) mg/dL Lactic Acid (0.4-2.0) mmol/L Calcium 6.8 L (8.5-10.1) mg/dL Magnesium (1.8-2.4) mg/dL Total Bilirubin (0.2-1.0) mg/dL AST (15-37) IU/L ALT (14-63) IU/L Alkaline Phosphatase (46-116) U/L Troponin I (0.000-0.056) ng/mL B-Natriuretic Peptide (<100) PG/ML Total Protein (6.4-8.2) g/dL Albumin (3.4-5.0) g/dL Globulin (2.6-4.0) g/dL Albumin/Globulin Ratio (0.9-1.6) Lipase (73-393) U/L Urine Color Urine Appearance Urine pH (5.0-8.0) Ur Specific [place] (1.001-1.035) Urine Protein (NEGATIVE) mg/dL Urine Glucose (UA) (NEGATIVE) mg/dL Urine Ketones (NEGATIVE) mg/dL Urine Occult Blood (NEGATIVE) Urine Nitrite (NEGATIVE) Urine Bilirubin (NEGATIVE) Urine Ictotest Urine Urobilinogen (<2.0) EU/dL Ur Leukocyte Esterase (NEGATIVE) Urine RBC (0-2/HPF) Urine WBC (0-5/HPF) Ur Epithelial Cells (NONE-FEW) Urine Bacteria (NEGATIVE) SARS-CoV-2 RNA (CIERRA) (NEGATIVE) Meds: Medications Generic Name Dose Route Start Last Admin Trade Name Freq PRN Reason Stop Dose Admin Lactated Ringer's 1,000 mls @ 999 mls/hr 12/01/20 02:15 12/01/20 02:23 Ringers, Lactated IV 999 mls/hr .BOLUS KERA Administration Lactated Ringer's 1,000 mls @ 999 mls/hr 12/01/20 02:15 12/01/20 02:31 Ringers, Lactated IV 999 mls/hr .BOLUS KERA Administration Norepinephrine Bitartrate 4 mg in 250 mls @ 7.5 mls/hr 12/01/20 05:00 12/01/20 07:14 Norepinephr-0.9% Nacl 4 Mg/250 IV 3 mcg/min TITRATE KERA 11.25 mls/hr Titration Protocol 2 MCG/MIN Phenylephrine HCl 10 mg/ 100 mls @ 24 mls/hr 12/01/20 08:00 Sodium Chloride IV TITRATE KERA Protocol 40 MCG/MIN Lactated Ringer's 1,000 mls @ 150 mls/hr 12/01/20 08:00 Ringers, Lactated IV ASDIRECTED [facility] Vasopressin 100 units/ Sodium 100 mls @ 0.6 mls/hr 12/01/20 08:00 Chloride IV TITRATE [facility] Protocol 0.01 UNITS/MIN Sodium Chloride 10 ml 12/01/20 00:49 12/01/20 00:58 Sodium Chloride 0.9% 10 Ml Syringe FLUSH 10 ml ASDIRECTED PRN Administration Keep Vein Open Sodium Chloride 2.5 ml 12/01/20 00:49 12/01/20 00:57 Sodium Chloride 0.9% 2.5 Ml Syringe FLUSH 2.5 ml ASDIRECTED PRN Administration Keep Vein Open Discontinued Medications Generic Name Dose Route Start Last Admin Trade Name Neelima PRN Reason Stop Dose Admin Sodium Chloride 1,000 mls @ 999 mls/hr 12/01/20 00:49 12/01/20 00:56 Normal Saline IV 12/01/20 01:49 999 mls/hr .Bolus ONE Administration Lactated Ringer's 1,000 mls @ 999 mls/hr 12/01/20 00:51 12/01/20 00:57 Ringers, Lactated IV 12/01/20 01:51 999 mls/hr .BOLUS ONE Administration Ceftriaxone Sodium/Dextrose 1 50 mls @ 100 mls/hr 12/01/20 02:09 12/01/20 02:24 gm/ Premix IV 12/01/20 02:38 100 mls/hr ONETIME ONE Administration Norepinephrine Bitartrate 4 mg 250 mls @ 7.5 mls/hr 12/01/20 05:00 / Dextrose/Water IV TITRATE [facility] Protocol 2 MCG/MIN Vancomycin HCl 2 gm/ Sodium 500 mls @ 333 mls/hr 12/01/20 05:00 12/01/20 05:35 Chloride IV Not Given Q24H [facility] Vancomycin HCl 2 gm/ Premix 400 mls @ 200 mls/hr 12/01/20 05:27 12/01/20 05:28 IV 12/01/20 07:26 200 mls/hr STAT ONE Administration - Re-Assessments/Exams Free Text/Narrative Re-Assessment/Exam: 12/01/20 08:03 Patient was signed to me from previous provider. Patient was pending transfer. She had a central line placed and also was started on Levophed. She is now tachycardic to the 160s and blood pressure remains low. We will add vasopressin as a second agent to observe blood pressure and to hopefully take away some of her tachycardia. Critical Care Note - Critical Care Note Total Time (mins): 50 Comments: Critical Care Procedure Note Authorized and Performed by: Dr. Tracey Total critical care time: Approximately Due to a high probability of clinically significant, life threatening deterioration, the patient required my highest level of preparedness to intervene emergently and I personally spent this critical care time directly and personally managing the patient. This critical care time included obtaining a history; examining the patient; pulse oximetry; ordering and review of studies; arranging urgent treatment with development of a management plan; evaluation of patient's response to treatment; frequent reassessment; and, discussions with other providers. This critical care time was performed to assess and manage the high probability of imminent, life-threatening deterioration that could result in multi-organ failure. It was exclusive of separately billable procedures and treating other patients and teaching time. Sepsis Event Note (ED) - Focused Exam Vital Signs: Vital Signs Temp Pulse Resp BP Pulse Ox 12/01/20 07:45 144 H 18 86/36 L 98 12/01/20 07:10 150 H 16 102/35 L 98 12/01/20 06:47 110 H 105/47 L 98 12/01/20 06:24 79 105/49 L 97 12/01/20 06:09 82 98/53 L 97 12/01/20 05:43 78 113/59 L 97 12/01/20 05:23 77 104/51 L 99 12/01/20 04:55 74 85/44 L 96 12/01/20 04:46 75 84/43 L 96 12/01/20 04:16 75 74/40 L 97 12/01/20 03:52 70 83/34 L 96 12/01/20 03:40 71 79/38 L 95 12/01/20 03:30 93 72/36 L 97 12/01/20 03:13 73 79/34 L 98 12/01/20 03:00 74 81/31 L 97 12/01/20 02:48 91 91/24 L 100 12/01/20 02:30 76 75/39 L 97 12/01/20 02:18 75 70/30 L 97 12/01/20 02:05 98 80/39 L 98 12/01/20 01:50 82 78/36 L 96 12/01/20 01:36 79 74/32 L 97 12/01/20 01:00 81 86/41 L 97 12/01/20 00:33 97.6 F 86 16 78/29 L 93 L - My Orders Last 24 Hours: My Active Orders 12/01/20 08:00 Vasopressin 100 units Sodium Chloride 0.9% [Normal Saline] 95 ml IV TITRATE - Assessment/Plan Last 24 Hours: My Active Orders 12/01/20 08:00 Vasopressin 100 units Sodium Chloride 0.9% [Normal Saline] 95 ml IV TITRATE
--- NOTE | 2020-12-01 03:33 | CT ---
For Patients: As a result of the Century Cures Act, medical imaging exams and procedure reports are released immediately into your electronic medical record. You may view this report before your referring provider. If you have questions, please contact your health care provider. INDICATION: Sepsis, urinary tract infection, history of stones TECHNIQUE: CT Abdomen and pelvis without i.v. contrast. Coronal and sagittal reformats were obtained. COMPARISON: 07/16/2020 FINDINGS: Lower chest: Unremarkable. Moderate anemia is present with the cardiac chambers appearing lucent with respect to the myocardium. Liver: The liver has a nodular capsular contour, consistent with micronodular cirrhosis. No focal liver lesions are identified. Spleen: Moderate splenomegaly is present measuring 14.3 cm without significant interval change. Pancreas: Unremarkable. Gallbladder: Previous cholecystectomy noted without significant intra- or extrahepatic biliary ductal dilatation seen. Kidney: Severe left renal pelviectasis is present without interval change and likely due to chronic UPJ obstruction. There is a 3 mm stone present in the lower pole of the right kidney and a 1 mm stone seen in the right mid zone. Adrenal: Unremarkable. Bowel: Unremarkable. The appendix is not identified. There is a midline infraumbilical hernia present containing fat and a small amount of ascites without significant change. Vascular: Unremarkable. Lymph: Unremarkable. Peritoneum: Nonspecific edema is noted within the mesentery and right retroperitoneum without interval change. This may be due to the altered hemodynamics related to the patient`s cirrhosis. No pneumoperitoneum is seen. Pelvis: Small amount of gas is present in the bladder. The patient is status post prior hysterectomy. Soft tissue: Mild subcutaneous edema is present. Bone: Mild chronic compression deformity along the left aspect of the L2 vertebral body is noted without interval change. IMPRESSIONS: 1. Severe left renal pelviectasis is present without interval change and likely due to chronic UPJ obstruction. 2. Small amount of gas is present in the bladder. This is likely due to recent bladder instrumentation but in the absence of this history, a gas forming urinary tract infection should be considered. 3. Cirrhosis, splenomegaly, small amount of ascites are present. Dictated by Primo Montoya MD @ 12/01/2020 3:30:52 AM Please note that all CT scans at this facility use dose modulation, iterative reconstruction, and/or weight-based dosing when appropriate to reduce radiation dose to as low as reasonably achievable. Dictated by: Primo Montoya MD @ 12/01/2020 03:30:58 (Electronically Signed)
[2020-12-01] MEDS ORDERED: Norepinephrine 4 MG in Dextrose 5% in Water 246 ML IV SCH ×2 (05:00)
[2020-12-01] MEDS ORDERED: Vancomycin 2 GM in Sodium Chloride 0.9% 500 ML IV SCH (05:00)
[2020-12-01] MEDS ORDERED: VANCOmycin 2 GM/400 ML 2 GM in Premix Bag 1 BAG IV ONE (05:27)
--- NOTE | 2020-12-01 05:28 | CR ---
For Patients: As a result of the Century Cures Act, medical imaging exams and procedure reports are released immediately into your electronic medical record. You may view this report before your referring provider. If you have questions, please contact your health care provider. INDICATION: Line placement TECHNIQUE: Chest radiograph 1 view COMPARISON: 12/01/2020 FINDINGS: Moderate degradation of image quality noted due to body habitus. Mediastinum: The mediastinum is normal in appearance. Mild stable cardiomegaly is seen. Left subclavian central line is present with the tip in the right atrium, approximately 3.5 cm beyond the cavoatrial junction. Lung: Moderate pulmonary vascular congestion is noted without interval change. No sign of pleural effusion seen. No pneumothorax is identified. Bone and Soft tissue: Unremarkable for age. IMPRESSION: 1. Left subclavian central line is present with the tip in the right atrium, approximately 3.5 cm beyond the cavoatrial junction. Dictated by Primo Montoya MD @ 12/01/2020 5:21:49 AM Dictated by: Primo Montoya MD @ 12/01/2020 05:27:27 (Electronically Signed)
[2020-12-01 05:30] LABS: CARBON DIOXIDE,CO2 24.1 mmol/L (21.0-32.0); POTASSIUM,K 4.7 mmol/L (3.5-5.1)
[2020-12-01] MEDS ORDERED: Phenylephrine 10 MG in Sodium Chloride 0.9% 99 ML IV SCH (08:00)
[2020-12-01] MEDS ORDERED: Hydrocortisone Sodium Succinate 100 MG/2 ML SDV IVPUSH ONE (08:05)
[2020-12-01 10:15] VITALS: BP 93/60; PULSE 68
== END 2020-12-01 10:07 ==
LOC: MW.ED 00:31
DX: R19.7 Diarrhea, unspecified (principal); E83.42 Hypomagnesemia; E11.9 Type 2 diabetes mellitus without complications; Z91.040 Latex allergy status; Z79.4 Long term (current) use of insulin; Z79.899 Other long term (current) drug therapy; Z88.1 Allergy status to other antibiotic agents; Z88.0 Allergy status to penicillin; Z88.5 Allergy status to narcotic agent; Z88.7 Allergy status to serum and vaccine; Z20.822 Contact with and (suspected) exposure to COVID-19
CPT/HCPCS: 36415; 36556; 71045; 74176; 80048; 80053; 81001; 83605; 83690; 83735; 83880; 84484; 85025; 85610; 85730; 87040; 87077; 87150; 87186; 87635; 93005; 96365; 96366; 96367; 96368; 96375; 99285; J0696; J1720; J2370; J3370; J3490; J7030; J7120; U0002